=== PATIENT | female | born 1950 | race Caucasian/White ===

== ENCOUNTER → 2016-11-23 | Outpatient (CLI) | payer OTHER ==
[2016-05-24 14:43] VITALS: BP 145/90; PULSE 65
[~2016-11-23] MED LIST: ALL180 PO; ANAS1TAB19 PO; ASPCH81X PO; CALC625T PO; CHOL100010 PO; CLTP PO; DOCU-94 PO; IBUP600T44 PO; LORA-741 PO; MULT-506 PO; NIAC500T11 PO; OMEG10007 PO; TAMO20TA47 PO
[2016-11-23 14:02] VITALS: BP_SYST 132; BP_SYST 153; BP_DIAS 88; BP_DIAS 96; PULSE 92; TEMP 36.5; O2SAT 94
--- NOTE | 2016-11-23 14:58 | Radiation Oncology Follow-Up ---
Radiation Oncology Follow-Up Date of Visit Nov 23, 2016. Reason For Visit 6 month follow-up Radiation Completion Date 04/12/16 APB Diagnosis (1) Breast cancer Status: Resolved Onset Date: 02/22/2016 Histology Subtype: invasive carcinoma with lobular features Stage: l (A) Permanent Comment: Family history of breast cancer Status post abnormal right breast mammogram 11/02/2015 Status post excisional biopsy 12/23/2015 revealing invasive carcinoma with lobular features Estrogen receptor positive, progesterone receptor positive, HER-2/dannie negative Status post right sentinel lymph node biopsy with reexcision 01/27/2016 Stage pT1c pN0M0 Reexcision 02/17/2016 Oncotype DX of 11 Status post completion of radiation therapy 04/12/2016 received 3850 cGy utilizing accelerated partial breast irradiation. Last Edited By: Crissy Jones on Apr 20, 2016 09:23 History of Present Illness Ms. Guaman is a 66-year-old female with a family history of breast Cancer. The patient's mother was diagnosed with breast cancer and from metastatic breast cancer at age 64. The patient has been followed with screening mammograms. Her most recent was on 10/29/2015 this was compared to the prior mammogram from 10/11/2014. The left breast was unremarkable. The right breast revealed scattered fibroglandular densities with additional projection and spot compression views were recommended. On 11/02/2015 the patient underwent a unilateral diagnostic right breast mammogram and targeted ultrasound. This showed a spiculated density in the right breast far posterior 1 o'clock position with targeted ultrasound demonstrating an equivocal corresponding area of architectural distortion without definitive mass. A biopsy however was recommended with a category 4 mL. On 12/23/2015 the patient underwent a right rest needle localization excisional biopsy. This was performed of the posterior right breast at a depth of 2:00. This revealed an invasive carcinoma with lobular features histologic grade 2 measuring 2.0 cm. There was evidence of low-grade DCIS without necrosis identified. Carcinoma however involve the cauterized HEENT superior margins. All other resection margins were negative for carcinoma but within 0.5 mm of the lateral margin at the posterior aspect and 1 mm to the posterior margin and 1.5 mm to the anterior margin. Estrogen receptors were strongly positive and progesterone receptors were strongly positive. HER-2/dannie was negative. Accession #: [id number]. Patient subsequently underwent a reexcision and sentinel node biopsy on 2015. 2 benign lymph nodes were noted by IHC and immunohistochemistry to cytokeratin. Reexcision of the right breast cavity revealed a small amount of residual invasive and in situ carcinoma measuring 0.3 cm in the tissue surrounding the reactive biopsy site. Invasive tumor was present at the cauterized anterior superior margin focally measuring 1 mm and in situ carcinoma was very close (less than 0.02 cm) to the anterior superior margin focally estimated at 1 mm. Accession #: [id number]. Ultimately the patient was taken for a reexcision of the anterior/superior margin on 02/17/2016. No residual disease was appreciated. Accession #: [id number]/02/2003. An Oncotype DX recurrence test was performed with a recurrence score result of 11. This places the patient in a low risk category. Based on this information and following review with Dr. Fei White the patient was not felt to require systemic chemotherapy. They did recommend adjuvant antiestrogen therapy with Arimidex that would start following the completion of her radiation. It is for discussion of the role of radiation that the patient is being seen in referral. She underwent CT simulation and was found to be a candidate for accelerated partial breast irradiation. Interim History She's been doing well over this past year. She had no discomfort of the breasts until after having mammogram. She then had some discomfort in the outer portion of the right breast. She's noted no masses or changes of the axilla. She is up-to-date on mammography. She is on tamoxifen and denies side effects. She had fallen and had contusions of her back and knees. It took a few months to recover from her injuries. She is doing well now and back to swimming regularly. When the joint discomfort was happening a decision was made to stop Arimidex and go on tamoxifen. Allergies Coded Allergies: No Known Allergies (Verified Allergy, Mild, 09/30/09) Home Medications Scheduled Aspirin (Aspirin Chewable), 81 MG PO DAILY Calcium Polycarbophil (Fibercon), 2 CAP PO DAILY Calcium/Vitamin D (Caltrate 600 Plus *), 1 TAB PO DAILY Cholecalciferol (Vitamin D), 1,000 INTER.UNIT PO DAILY Docusate Sodium (Colace), 1 CAP PO DAILY Fish Oil ([place]-3), 1,000 MG PO DAILY Ibuprofen (Motrin), 600 MG PO Q6HR PRN Multivitamin (Multivitamin), 1 TAB PO DAILY Niacin (Niacin), 500 MG PO DAILY Tamoxifen (Nolvadex), 20 MG PO DAILY Scheduled PRN Fexofenadine Hcl (Laurie *), 180 MG PO DAILY PRN for Nasal Congestion Review of Systems Gastrointestinal: Symptoms: WNL Oral: Symptoms: No Problems Respiratory: Symptoms: WNL Urinary: Symptoms: WNL Skin: Symptoms: No Problems Other Skin Symptoms: Skin currently peeling, tenderness is better, using silvadene Breast: Right Upper Arm Measurement: 37.0 Right Mid Arm Measurement: 32.5 Right Wrist Measurement: 18.5 Left Upper Arm Measurement: 37.5 Left Mid Arm Measurement: 31.3 Left Wrist Measurement: 18.8 Arm Dominence: Right Physical Exam Vital Signs Date Time Temp Pulse Resp B/P Pulse Ox O2 Delivery O2 Flow Rate FiO2 11/23/16 14:02 36.5 92 16 153/96 94 132/88 Pain: Patient Pain Scale: 0 - 10 Initial Pain Intensity: 0.0 Fatigue: None General Appearance: no apparent distress Eyes: normal inspection, EOMI ENT: normal ENT inspection, hearing grossly normal Neck: no adenopathy, thyroid normal Respiratory/Chest: lungs clear, no respiratory distress, no accessory muscle use Breast: Breast examination reveals well-healed incisions of the right breast. There is mild hyperpigmentation mentation in the area of treatment in the upper outer quadrant. She also has telangiectasia over the area of the incision. There are no masses or lymphadenopathy. She has very mild tenderness in the area of the tail of the breast. There are no skin retractions or nipple changes. Using the [place] score cosmesis she has a fair outcome. The left breast showed no masses or tenderness and no axillary adenopathy. Cardiovascular: regular rate, rhythm, no gallop, no murmur Abdomen: non tender, soft Neurologic/Psychiatric: no motor/sensory deficits, alert, normal mood/affect Skin: warm/dry Lymphatic: no adenopathy Additional Studies She had a mammogram 10/06/2016. On the right findings are probably benign. A short interval follow-up is recommended in 6 months. On the left negative, no evidence of malignancy. Normal interval follow-up is recommended in 12 months. This was given a BI-RADS Category 3. Assessment & Plan Plan: She is scheduled for her next mammogram in April. This will be a right unilateral mammogram. She continues on tamoxifen. We discussed the telangiectasia and hyperpigmentation in the area of treatment. The hyperpigmentation should steadily improved. Unfortunately the telangiectasia will be a likely permanent later side effect. Continue regular follow-up with Dr. White in medical oncology and her primary care physician. We asked her to return to our office in 1 year. Total Time In Follow-Up I spent 20 minutes speaking to the patient and performing his examination. I spent 15 minutes reviewing information in completing this note. Copy To Patricia Terrazas MD; Nel Mora D.O.; Fei White M.D. Problem Qualifiers (1) Breast cancer: Breast location: upper inner quadrant of breast Patient sex: female Laterality: right Qualified Codes: C50.211 - Malignant neoplasm of upper- inner quadrant of right female breast
== END | disposition home or self-care (01) ==
LOC: C.ONC 13:50
PROVIDERS: ATTEND Radiology Radiation Oncology
DX: Z08 Encounter for follow-up examination after completed treatment for malignant neoplasm (principal); Z92.3 Personal history of irradiation; Z85.3 Personal history of malignant neoplasm of breast

== ENCOUNTER → 2017-11-22 | Outpatient (CLI) | payer OTHER ==
[~2017-11-22] MED LIST changes: -ANAS1TAB19 PO; -LORA-741 PO; -TAMO20TA47 PO; +TAMO20TA9 PO
[2017-11-22 13:24] VITALS: BP 131/76; PULSE 80; TEMP 36.5; O2SAT 93
--- NOTE | 2017-11-22 14:15 | Radiation Oncology Follow-Up ---
Radiation Oncology Follow-Up Date of Visit Nov 22, 2017. Reason For Visit annual follow up Radiation Completion Date 04/12/16 - APBI Diagnosis (1) Breast cancer Status: Resolved Onset Date: 02/22/2016 Histology Subtype: Lobular Stage: l (A) Permanent Comment: Family history of breast cancer Status post abnormal right breast mammogram 11/02/2015 Status post excisional biopsy 12/23/2015 revealing invasive carcinoma with lobular features Estrogen receptor positive, progesterone receptor positive, HER-2/dannie negative Status post right sentinel lymph node biopsy with reexcision 01/27/2016 Stage pT1c pN0M0 Reexcision 02/17/2016 Oncotype DX of 11 Status post completion of radiation therapy 04/12/2016 received 3850 cGy utilizing accelerated partial breast irradiation. Last Edited By: Crissy Jones on Apr 20, 2016 09:23 History of Present Illness Ms. Guaman has a family history of breast Cancer. The patient's mother was diagnosed with breast cancer and from metastatic breast cancer at age 64. The patient has been followed with screening mammograms. Her most recent was on 10/29/2015 this was compared to the prior mammogram from 10/11/2014. The left breast was unremarkable. The right breast revealed scattered fibroglandular densities with additional projection and spot compression views were recommended. On 11/02/2015 the patient underwent a unilateral diagnostic right breast mammogram and targeted ultrasound. This showed a spiculated density in the right breast far posterior 1 o'clock position with targeted ultrasound demonstrating an equivocal corresponding area of architectural distortion without definitive mass. A biopsy however was recommended with a category 4 mL. On 12/23/2015 the patient underwent a right rest needle localization excisional biopsy. This was performed of the posterior right breast at a depth of 2:00. This revealed an invasive carcinoma with lobular features histologic grade 2 measuring 2.0 cm. There was evidence of low-grade DCIS without necrosis identified. Carcinoma however involve the cauterized HEENT superior margins. All other resection margins were negative for carcinoma but within 0.5 mm of the lateral margin at the posterior aspect and 1 mm to the posterior margin and 1.5 mm to the anterior margin. Estrogen receptors were strongly positive and progesterone receptors were strongly positive. HER-2/dannie was negative. Accession #: [id number]. Patient subsequently underwent a reexcision and sentinel node biopsy on 2015. 2 benign lymph nodes were noted by IHC and immunohistochemistry to cytokeratin. Reexcision of the right breast cavity revealed a small amount of residual invasive and in situ carcinoma measuring 0.3 cm in the tissue surrounding the reactive biopsy site. Invasive tumor was present at the cauterized anterior superior margin focally measuring 1 mm and in situ carcinoma was very close (less than 0.02 cm) to the anterior superior margin focally estimated at 1 mm. Accession #: [id number]. Ultimately the patient was taken for a reexcision of the anterior/superior margin on 02/17/2016. No residual disease was appreciated. Accession #: [id number] 12/02/2003. An Oncotype DX recurrence test was performed with a recurrence score result of 11. This places the patient in a low risk category. Based on this information and following review with Dr. Fei White the patient was not felt to require systemic chemotherapy. They did recommend adjuvant antiestrogen therapy with Arimidex that would start following the completion of her radiation. It is for discussion of the role of radiation that the patient is being seen in referral. She underwent CT simulation and was found to be a candidate for accelerated partial breast irradiation. Interim History She has been doing well over this past year. She denies any changes to her breast. She has noted no masses or tenderness and no change of the axilla. She has had no swelling of her arm. She had side effects with tamoxifen. She had severe muscle pain and arthralgias. She discussed it with Dr. White at medical oncology and made the decision to stop the medication. She does feel improved off the medication. She does continue to have some pain in her knees. This can be around a level 5. She does have a previous injury approximately a year and half ago. She had tripped and fallen onto her knees. She was seen and evaluated. There was also a back injury. She was referred and underwent physical therapy. Allergies Coded Allergies: No Known Allergies (Verified Allergy, Mild, 09/30/09) Home Medications Scheduled Aspirin (Aspirin Chewable), 81 MG PO DAILY Calcium Polycarbophil (Fibercon), 1 CAP PO DAILY Calcium/Vitamin D (Caltrate 600 Plus *), 1 TAB PO DAILY Cholecalciferol (Vitamin D), 1,000 INTER.UNIT PO DAILY Docusate Sodium (Colace), 1 CAP PO DAILY Fish Oil ([place]-3), 1,000 MG PO DAILY Multivitamin (Multivitamin), 1 TAB PO DAILY Niacin (Niacin), 500 MG PO DAILY Scheduled PRN Fexofenadine Hcl (Laurie *), 180 MG PO DAILY PRN for Nasal Congestion Ibuprofen (Motrin), 600 MG PO Q6HR PRN PRN for Pain Review of Systems Gastrointestinal: Symptoms: WNL Oral: Symptoms: No Problems Respiratory: Symptoms: WNL Urinary: Symptoms: WNL Skin: Symptoms: No Problems Breast: Right Upper Arm Measurement: 36.4 Right Mid Arm Measurement: 32.4 Right Wrist Measurement: 18.8 Left Upper Arm Measurement: 36.5 Left Mid Arm Measurement: 30.8 Left Wrist Measurement: 18.4 Arm Dominence: Right Physical Exam Vital Signs Date Time Temp Pulse Resp B/P (MAP) Pulse Ox O2 Delivery O2 Flow Rate FiO2 11/22/17 13:24 36.5 80 16 131/76 93 Fatigue: None General Appearance: no apparent distress Eyes: normal inspection, EOMI ENT: normal ENT inspection, hearing grossly normal Neck: no adenopathy, thyroid normal Respiratory/Chest: lungs clear, no respiratory distress, no accessory muscle use Breast: Breast examination reveals well-healed incisions of the right breast. There are no masses or tenderness and no axillary adenopathy. There are fibrous changes in the upper quadrants of the breast. She has overlying telangiectasia in the area of the incision. There are no skin retractions or nipple changes. Using the [place] score of cosmesis she has a fair outcome. Left breast showed no masses or tenderness and no axillary adenopathy. Cardiovascular: regular rate, rhythm, no gallop, no murmur Abdomen: non tender, soft Extremities: no pedal edema Neurologic/Psychiatric: no motor/sensory deficits, alert, normal mood/affect Skin: warm/dry Pain Management Patient Reports Pain: Yes Side: Bilateral Pain Location: Knee Initial Pain Intensity: 5.0 Pain Management Plan This is an ongoing issue which she is going to continue to review with her primary care physician. She currently does not take any pain medication. No pain management was required by our office. Laboratory Laboratory Results: not applicable Pathology Pathology Results: not applicable Imaging Imaging Studies: were reviewed, and pertinent findings noted below Imaging Comments Results MAMMOGRAM, DIAGNOSTIC, BILAT [G0204.2] (Spec. #[id number]) (Order [id number]) Date/Time of Imaging Study Study Completed: 10/19/2017 11:21 AM [facility] PACS Image Narrative Comparison is made to images from 10/06/2016 (bilateral) and images from 2015 (right) and images from 10/29/2015 (bilateral) and images from 10/11/2014 (bilateral) and images from (bilateral) and images from 09/13/2012 (bilateral) and images from 03/01/2012 (left) and images from 08/29/2011 (bilateral) and images from 02/25/2011 (left). Right Breast Findings: There are scattered fibroglandular densities (25% - 50% fibroglandular). Posttherapeutic changes of resection of invasive carcinoma December 2015. No new significant masses, calcifications or other abnormalities are seen. Left Breast Findings: There are scattered fibroglandular densities (25% - 50% fibroglandular). No significant masses, calcifications or other abnormalities are seen. Authenticated By Authenticating Date Authenticating Time Reading Providers(s) BRYCE COREY MD 10-19-2017 14:42 BRYCE COREY MD IMPRESSION: RIGHT BREAST: Findings are probably benign. A short interval follow-up is recommended in 6 months to complete 24 months of post procedure evaluation. LEFT BREAST: Negative, no evidence of malignancy. Normal interval follow-up is recommended in 12 months. The above findings and recommendations were discussed with and understood by the patient. Note: Approximately 10% of breast cancers are not detected on mammography. A negative mammographic report should not delay biopsy if a clinically suggestive mass is present. This mammogram has been analyzed with the computer aided detection system. Tomosynthesis was done. Assessment & Plan Plan: Continue with scheduled mammography. Continue regular follow-up with her breast surgeon and primary care physician. She has been discharged from medical oncology. She is no longer on the tamoxifen. She will see her primary care physician if she continues to have issues with discomfort in her knees. We discussed follow-up examinations. She should be having breast exams every 6 months. She stated that most of her visits have been within the past 2 months. She is therefore going to be scheduled to come back to our office in 6 months. We can then alternate visits with her breast surgeon. She may call our office if she has any questions or concerns in the interim. Total Time In Follow-Up I spent 20 minutes speaking to the patient and performing examination. I spent 15 minutes reviewing information and completing this note. Copy To Patricia Terrazas MD; Nel Mora D.O. Problem Qualifiers (1) Breast cancer: Breast location: upper inner quadrant of breast Estrogen receptor status: positive Patient sex: female Laterality: right Qualified Codes: C50.211 - Malignant neoplasm of upper-inner quadrant of right female breast; Z17.0 - Estrogen receptor positive status [ER+]
== END | disposition home or self-care (01) ==
LOC: C.ONC 13:18
PROVIDERS: ATTEND Physician Assistant Medical
DX: Z08 Encounter for follow-up examination after completed treatment for malignant neoplasm (principal); Z92.3 Personal history of irradiation; Z85.3 Personal history of malignant neoplasm of breast

== ENCOUNTER 2018-02-22 17:19 | Emergency (ER) | payer OTHER ==
[~2018-02-22] VITALS: Ht 177.8 cm; Wt 115.7 kg
[~2018-02-22 17:19] MED LIST changes: -TAMO20TA9 PO
[2018-02-22 17:25] VITALS: TEMP 36.6; Ht 177.8 cm; Wt 115.7 kg
--- NOTE | 2018-02-22 17:43 | EMERGENCY ROOM VISIT NOTE ---
History Report prepared by Luiza: Reji Jones Under the Supervision of: Dr. Hernan Ham M.D. First contact with patient: 17:28 Chief Complaint: KIDNEY STONE Stated Complaint: KIDNEY STONES, LOWER LEFT BACK PAIN History of Present Illness The patient is a 67 year old female who presents to the Emergency Room with complaints of waxing and waning left lower back pain starting this morning which is worse with movement and leaning over. The patient notes that she has a "strange sensation" in her pelvis after she urinates for the past few days. She states that she talked to her PCP and thought that she had a UTI so she was prescribed Bactrim and is taking over the counter Azo medication. She states that she has a history of kidney stones, and she states that the back pain feels somewhat similar. The patient denies any fever, chills, nausea, vomiting, vaginal bleeding, vaginal discharge, leg pain, leg swelling, and headache. The patient has a history of breast cancer and is in remission. The patient has no history of diabetes, and she is not on any blood thinners. Source of History: patient, spouse/significant other Onset: this morning Position: back (left lower) Timing: waxes/wanes Modifying Factors (Worsening): movement, other (leaning over) Associated Symptoms: No fevers, No chills, No headache, No nausea, No vomiting Review of Systems See HPI for pertinent positives & negatives. A total of 10 systems reviewed and were otherwise negative. Past Medical & Surgical Medical Problems: (1) Breast cancer Old medical records were reviewed. Nurse's notes were reviewed and I agree with. Social History Smoking Status: Never Smoker Alcohol Use: none Marital Status: Current/Historical Medications Scheduled Aspirin (Aspirin Chewable), 81 MG PO DAILY Calcium Carbonate-Vitamin D W/ (Caltrate 600 Plus), 1 TAB PO DAILY Calcium Polycarbophil (Fibercon), 1 CAP PO DAILY Cholecalciferol (Vitamin D), 1,000 UNITS PO DAILY Docusate Sodium (Colace), 1 CAP PO DAILY Fish Oil ([place]-3), 1,000 MG PO DAILY Multivitamin (Multivitamin), 1 TAB PO DAILY Niacin (Niacin), 500 MG PO DAILY Sulfa/Trimethoprim (Bactrim Ds 800MG/160MG), 1 TAB PO BID Scheduled PRN Fexofenadine-Pseudoephedrine (Laurie-D 24 Hour Allergy), 1 TAB PO DAILY PRN for Seasonal Allergies Ibuprofen (Motrin), 600 MG PO Q6HR PRN PRN for Pain Allergies Coded Allergies: No Known Allergies (Verified , 02/22/18) Physical Exam Vital Signs Date Time Temp Pulse Resp B/P (MAP) Pulse Ox O2 Delivery O2 Flow Rate FiO2 02/22/18 19:20 82 17 145/83 97 Room Air 02/22/18 17:25 36.6 88 18 174/102 95 Room Air Physical Exam General: Non-ill appearing older female in no acute distress. HEENT: Normal cephalic atraumatic. Pupils are equal round and reactive to light. Extraocular movements are intact. Oropharynx is pink with moist mucous membranes. No swelling of the mouth lips or tongue. Neck: Supple with a midline trachea. No meningeal signs or stiffness, no JVD or bruits. No Stridor. Chest: Clear to auscultation bilaterally. No wheezes or rhonchi. No increased work of breathing. Heart: regular rate and rhythm. Abdomen: Soft nontender, nondistended without rebound guarding or rigidity. Extremities: No cyanosis clubbing or edema. No calf tenderness or assymetry Spine/Back. Left flank is mildly tender to palpation. Non tender to palpation. Skin: Good turgor without rashes. Neurologic exam: Cranial nerves two through 12 are intact. Motor and sensation are intact and symmetrical throughout. Medical Decision & Procedures ER Provider Diagnostic Interpretation: Radiology results as stated below per my review and radiologist interpretation: ABDOMEN AND PELVIS CT WITHOUT CONTRAST CT DOSE: 1703.63 mGy.cm HISTORY: left flank pain TECHNIQUE: Multiaxial CT images of the abdomen and pelvis were performed without the use of intravenous and oral contrast according to the standard department stone protocol. A dose lowering technique was utilized adhering to the principles of ALARA. COMPARISON STUDY: Abdomen and pelvis CT 06/20/2011. FINDINGS: The bladder is decompressed. However, there is moderate bladder wall thickening and surrounding fat stranding. Multiple bilateral renal calculi. There are also 2 stones seen within the left renal pelvis with the largest measuring 7 mm. Mild left hydronephrosis. However, there are are no obstructing ureteral stones. There is mild left perinephric edema and mild urothelial thickening within the left renal collecting system and left ureter. There are few bilateral renal hypodense lesions. Dominant lesion within the left kidney measures 2 cm. There is also exophytic hypodense lesion within the lower pole the right kidney measuring 1.6 cm. These are incompletely characterize on this noncontrast study but favor cysts. These are not significantly changed. The unenhanced liver, gallbladder, pancreas, spleen, and adrenal glands are unremarkable. Moderate hiatus hernia. Small fat-containing umbilical hernia and a small fat-containing infraumbilical hernia. Hysterectomy. Suboptimal evaluation for pathology due to the lack of intravenous and oral contrast. However, there is no definite bowel wall thickening or obstruction. Extensive colonic diverticulosis. Normal appendix. No retroperitoneal lymphadenopathy. No suspicious lytic or blastic osseous lesions. The lung bases are clear. IMPRESSION: 1. Mild left hydronephrosis. There is also mild left perinephric fat stranding and urothelial thickening of the left renal pelvis and left ureter. This favors a left-sided pyelonephritis. However, a recently passed stone could also have a similar appearance. 2. Bilateral nephrolithiasis. No ureteral calculi identified. 3. There is also moderate bladder wall thickening with adjacent fat stranding consistent with a cystitis. Recommend correlation with urinalysis. 4. No bowel wall thickening or obstruction. 5. Moderate hiatus hernia. 6. Additional findings as described above. Electronically signed by: Everardo Bejarano M.D. 02/22/2018 6:14 PM Dictated Date/Time: 02/22/2018 6:06 PM Laboratory Results 02/22/18 17:50 Red Blood Count 4.04, Mean Corpuscular Volume 94.3, Mean Corpuscular Hemoglobin 31.4, Mean Corpuscular Hemoglobin Concent 33.3, Mean Platelet Volume 9.6, Neutrophils (%) (Auto) 69.3, Lymphocytes (%) (Auto) 20.4, Monocytes (%) (Auto) 8.3, Eosinophils (%) (Auto) 1.6, Basophils (%) (Auto) 0.2, Neutrophils # (Auto) 6.59, Lymphocytes # (Auto) 1.94, Monocytes # (Auto) 0.79, Eosinophils # (Auto) 0.15, Basophils # (Auto) 0.02 02/22/18 17:50 Test 02/22/18 17:45 02/22/18 17:50 Urine Color ORANGE Urine Appearance CLOUDY (CLEAR) Urine pH (4.5-7.5) Urine Specific [place] 1.006 (1.000-1.030) Urine Protein NEG (NEG) Urine Glucose (UA) (NEG) Urine Ketones (NEG) Urine Occult Blood (NEG) Urine Nitrite (NEG) Urine Bilirubin (NEG) Urine Urobilinogen (NEG) Urine Leukocyte Esterase (NEG) Urine RBC 5-10 /hpf (0-4) Urine WBC >30 /hpf (0-5) Urine Epithelial Cells 0-5 /lpf (0-5) Urine Bacteria NEG (NEG) Urine Hyaline Casts 0 /lpf (0-5) White Blood Count 9.51 K/uL (4.8-10.8) Red Blood Count 4.04 M/uL (4.2-5.4) Hemoglobin 12.7 g/dL (12.0-16.0) Hematocrit 38.1 % (37-47) Mean Corpuscular Volume 94.3 fL (80-100) Mean Corpuscular Hemoglobin 31.4 pg (25-34) Mean Corpuscular Hemoglobin Concent 33.3 g/dl (32-36) Platelet Count 209 K/uL (130-400) Mean Platelet Volume 9.6 fL (7.4-10.4) Neutrophils (%) (Auto) 69.3 % Lymphocytes (%) (Auto) 20.4 % Monocytes (%) (Auto) 8.3 % Eosinophils (%) (Auto) 1.6 % Basophils (%) (Auto) 0.2 % Neutrophils # (Auto) 6.59 K/uL (1.4-6.5) Lymphocytes # (Auto) 1.94 K/uL (1.2-3.4) Monocytes # (Auto) 0.79 K/uL (0.11-0.59) Eosinophils # (Auto) 0.15 K/uL (0-0.5) Basophils # (Auto) 0.02 K/uL (0-0.2) RDW Standard Deviation 48.2 fL (36.4-46.3) RDW Coefficient of Variation 14.0 % (11.5-14.5) Immature Granulocyte % (Auto) 0.2 % Immature Granulocyte # (Auto) 0.02 K/uL (0.00-0.02) Anion Gap 7.0 mmol/L (3-11) Est Creatinine Clear Calc Drug Dose 84.8 ml/min Estimated GFR () 77.2 Estimated GFR (Non- 66.6 BUN/Creatinine Ratio 16.5 (10-20) Calcium Level 9.3 mg/dl (8.5-10.1) Total Bilirubin 0.3 mg/dl (0.2-1) Direct Bilirubin < 0.1 mg/dl (0-0.2) Aspartate Amino Transf (AST/SGOT) 18 U/L (15-37) Alanine Aminotransferase (ALT/SGPT) 21 U/L (12-78) Alkaline Phosphatase 71 U/L (45-117) Total Protein 8.7 gm/dl (6.4-8.2) Albumin 4.0 gm/dl (3.4-5.0) Lipase 102 U/L (73-393) Laboratory studies as stated above per my review. Medications Administered Medications (Trade) Dose Ordered Sig/Coral Route Start Time Stop Time Status Last Admin Dose Admin Ceftriaxone Sodium (Rocephin Inj) 1 gm NOW STAT IV 02/22/18 18:19 02/22/18 18:21 DC 02/22/18 18:32 1 GM Ketorolac Tromethamine (Toradol Inj) 30 mg NOW STAT IV 02/22/18 18:25 02/22/18 18:26 DC 02/22/18 18:33 30 MG ED Course 172: Past medical records reviewed. The patient was evaluated in room B6, and a complete history and physical examination were performed. 1805: I reevaluated the patient, and she was doing well. 1818: Rocephin 1gm IV 1822: I reassessed the patient, and she was resting comfortably. 1824: Toradol 30mg IV 1925: Upon reevaluation, the patient is feeling better. I discussed the results and treatment plan with her. She verbalized agreement of the treatment plan. The patient was discharged home. Medical Decision Differentials include, but are not limited to; kidney stone, UTI, kidney infection, musculoskeletal pain, electrolyte or metabolic abnormality. This patient comes in complaining of urinary symptoms and now they are hurting more towards her left flank she started Bactrim today. She appears well on exam and nontoxic. She has no significant flank tenderness and clinically I do not think she has pyelonephritis. She does have history of kidney stones and feels that this could feel similar though she appears in no significant distress. She does have history of breast cancer however she says this is in remission. IV access was established and multiple blood testing was obtained as well as urinalysis and culture. I did do a CAT scan to rule out any obstructive uropathy or kidney stone. She was reassessed frequently. CAT scan shows no evidence to suggest an obstructing kidney stone there is some mild hydronephrosis on the left which could be from infection or recently passed stone. She tells me she did pass a large stone recently around Mother's Day. Her urinalysis has greater than 30 and will continue Bactrim. She was also given white cells but no bacteria she has no white count or fever to suggest infection. She was given Rocephin 1 g IV to cover the possibility of infection and was also given Toradol 30 mg IV. She is feeling better would like to go home. I think this is reasonable with close follow-up. I will increase her Bactrim to 10 days. She just started this today. She should return if: increasing pain, worsening of symptoms, fever or chills, any new problems or concerns. She was happy the plan and discharged to home. She should follow-up with her doctor or urologist either tomorrow or Monday or return to the ER at any point if symptoms worsen. Medication Reconcilliation Current Medication List: was personally reviewed by me Blood Pressure Screening Patient's blood pressure: Elevated blood pressure Blood pressure disposition: Referred to PCP Impression Primary Impression: Pyelonephritis Additional Impression: UTI (urinary tract infection) Scribe Attestation The scribe's documentation has been prepared under my direction and personally reviewed by me in its entirety. I confirm that the note above accurately reflects all work, treatment, procedures, and medical decision making performed by me. Departure Information Dispostion Home / Self-Care Prescriptions Sulfa/Trimethoprim (Bactrim Ds 800MG/160MG) Tab 1 TAB PO BID, #14 TAB Prov: Hernan Ham M.D. 02/22/18 Referrals Nel Mora D.O. (PCP) Forms HOME CARE DOCUMENTATION FORM, IMPORTANT VISIT INFORMATION Patient Instructions [facility] Additional Instructions Rest. Drink plenty of fluids. May use [id number] ibuprofen 400 mg every 6 hours as needed for pain May also use acetaminophen/Tylenol a maximum of 2 regular strength pills every 6 hours Do not take with any other medications that contain acetaminophen/Tylenol Continue your Bactrim and take it for a total of 10 days Return to the ER if: Increasing pain, fever or chills, vomiting, worsening of symptoms, any new problems or concerns. Problem Qualifiers
[2018-02-22 18:11] LABS: BASO % 0.2 %; BASO ABS # 0.02 K/uL (0-0.2); EOS % 1.6 %; EOS ABS # 0.15 K/uL (0-0.5); HEMATOCRIT 38.1 % (37-47); HEMOGLOBIN 12.7 g/dL (12.0-16.0); IG# 0.02 K/uL (0.00-0.02); LYMPH % 20.4 %; LYMPH ABS # 1.94 K/uL (1.2-3.4); MEAN CELL VOLUME 94.3 fL (80-100); MEAN CORPUSCULAR HEMOGLOBIN 31.4 pg (25-34); MEAN CORPUSCULAR HGB CONC 33.3 g/dl (32-36); MEAN PLATELET VOLUME 9.6 fL (7.4-10.4); MONO % 8.3 %; MONO ABS # 0.79 K/uL (0.11-0.59); NEUT % 69.3 %; NEUT ABS # 6.59 K/uL (1.4-6.5); PLATELET COUNT 209 K/uL (130-400); RED CELL DISTRIBUTION WIDTH SD 48.2 fL (36.4-46.3); WHITE BLOOD COUNT 9.51 K/uL (4.8-10.8)
[2018-02-22] MEDS ORDERED: CHOL100010 PO (18:11)
[2018-02-22] MEDS ORDERED: FEXO1TAB58 PO (18:11)
[2018-02-22] MEDS ORDERED: CALCTAB7 PO (18:11)
--- NOTE | 2018-02-22 18:15 | DIAGNOSTIC IMAGING REPORT ---
ABDOMEN AND PELVIS CT WITHOUT CONTRAST CT DOSE: 1703.63 mGy.cm HISTORY: left flank pain TECHNIQUE: Multiaxial CT images of the abdomen and pelvis were performed without the use of intravenous and oral contrast according to the standard department stone protocol. A dose lowering technique was utilized adhering to the principles of ALARA. COMPARISON STUDY: Abdomen and pelvis CT 06/20/2011. FINDINGS: The bladder is decompressed. However, there is moderate bladder wall thickening and surrounding fat stranding. Multiple bilateral renal calculi. There are also 2 stones seen within the left renal pelvis with the largest measuring 7 mm. Mild left hydronephrosis. However, there are are no obstructing ureteral stones. There is mild left perinephric edema and mild urothelial thickening within the left renal collecting system and left ureter. There are few bilateral renal hypodense lesions. Dominant lesion within the left kidney measures 2 cm. There is also exophytic hypodense lesion within the lower pole the right kidney measuring 1.6 cm. These are incompletely characterize on this noncontrast study but favor cysts. These are not significantly changed. The unenhanced liver, gallbladder, pancreas, spleen, and adrenal glands are unremarkable. Moderate hiatus hernia. Small fat-containing umbilical hernia and a small fat-containing infraumbilical hernia. Hysterectomy. Suboptimal evaluation for pathology due to the lack of intravenous and oral contrast. However, there is no definite bowel wall thickening or obstruction. Extensive colonic diverticulosis. Normal appendix. No retroperitoneal lymphadenopathy. No suspicious lytic or blastic osseous lesions. The lung bases are clear. IMPRESSION: 1. Mild left hydronephrosis. There is also mild left perinephric fat stranding and urothelial thickening of the left renal pelvis and left ureter. This favors a left-sided pyelonephritis. However, a recently passed stone could also have a similar appearance. 2. Bilateral nephrolithiasis. No ureteral calculi identified. 3. There is also moderate bladder wall thickening with adjacent fat stranding consistent with a cystitis. Recommend correlation with urinalysis. 4. No bowel wall thickening or obstruction. 5. Moderate hiatus hernia. 6. Additional findings as described above. Electronically signed by: Everardo Bejarano M.D. 02/22/2018 6:14 PM Dictated Date/Time: 02/22/2018 6:06 PM
[2018-02-22] MEDS ORDERED: CEFTRIAXONE SOD INJ 1 GM ADDVIAL IV STA (18:19)
[2018-02-22] MEDS ORDERED: KETOROLAC TROMETHAMINE 30 MG/ML VIAL IV STA (18:25)
[2018-02-22 18:37] LABS: ALKALINE PHOSPHATASE 71 U/L (45-117); ALT/SGPT 21 U/L (12-78); AST/SGOT 18 U/L (15-37); BLOOD UREA NITROGEN 15 mg/dl (7-18); CALCIUM 9.3 mg/dl (8.5-10.1); CARBON DIOXIDE 26 mmol/L (21-32); GLUCOSE 83 mg/dl (70-99); LIPASE 102 U/L (73-393); POTASSIUM 3.9 mmol/L (3.5-5.1); SODIUM 138 mmol/L (136-145); TOTAL PROTEIN 8.7 gm/dl (6.4-8.2)
[2018-02-22] MEDS ORDERED: SULF800T23 PO (18:54)
[2018-02-22 19:20] VITALS: BP 145/83; PULSE 82; O2SAT 97
== END 2018-02-22 19:41 | disposition home or self-care (01) ==
LOC: C.EDB 17:20
DX: N12 Tubulo-interstitial nephritis, not specified as acute or chronic (principal); N39.0 Urinary tract infection, site not specified; R03.0 Elevated blood-pressure reading, without diagnosis of hypertension; Z85.3 Personal history of malignant neoplasm of breast

== ENCOUNTER → 2018-05-22 | Outpatient (CLI) | payer OTHER ==
[~2018-05-22] MED LIST changes: -ALL180 PO; +CALCTAB7 PO; -CLTP PO; +FEXO1TAB58 PO; +SULF800T23 PO
[2018-05-22 13:50] VITALS: BP 146/74; PULSE 71; TEMP 36.4; O2SAT 95
--- NOTE | 2018-05-22 14:35 | Radiation Oncology Follow-Up ---
Radiation Oncology Follow-Up Date of Visit May 22, 2018. Reason For Visit Annual follow up Radiation Completion Date 04/12/16 - [facility] Diagnosis (1) Breast cancer Status: Resolved Onset Date: 02/22/2016 Stage: l (A) Permanent Comment: Family history of breast cancer Status post abnormal right breast mammogram 11/02/2015 Status post excisional biopsy 12/23/2015 revealing invasive carcinoma with lobular features Estrogen receptor positive, progesterone receptor positive, HER-2/dannie negative Status post right sentinel lymph node biopsy with reexcision 01/27/2016 Stage pT1c [id number] Reexcision 02/17/2016 Oncotype DX of 11 Status post completion of radiation therapy 04/12/2016 received 3850 cGy utilizing accelerated partial breast irradiation. Last Edited By: Crissy Jones on Apr 20, 2016 09:23 History of Present Illness Ms. Guaman has a family history of breast Cancer. The patient's mother was diagnosed with breast cancer and from metastatic breast cancer at age 64. The patient has been followed with screening mammograms. Her most recent was on 10/29/2015 this was compared to the prior mammogram from 10/11/2014. The left breast was unremarkable. The right breast revealed scattered fibroglandular densities with additional projection and spot compression views were recommended. On 11/02/2015 the patient underwent a unilateral diagnostic right breast mammogram and targeted ultrasound. This showed a spiculated density in the right breast far posterior 1 o'clock position with targeted ultrasound demonstrating an equivocal corresponding area of architectural distortion without definitive mass. A biopsy however was recommended with a category 4 mL. On 12/23/2015 the patient underwent a right rest needle localization excisional biopsy. This was performed of the posterior right breast at a depth of 2:00. This revealed an invasive carcinoma with lobular features histologic grade 2 measuring 2.0 cm. There was evidence of low-grade DCIS without necrosis identified. Carcinoma however involve the cauterized HEENT superior margins. All other resection margins were negative for carcinoma but within 0.5 mm of the lateral margin at the posterior aspect and 1 mm to the posterior margin and 1.5 mm to the anterior margin. Estrogen receptors were strongly positive and progesterone receptors were strongly positive. HER-2/dannie was negative. Accession #: [id number]. Patient subsequently underwent a reexcision and sentinel node biopsy on 2015. 2 benign lymph nodes were noted by IHC and immunohistochemistry to cytokeratin. Reexcision of the right breast cavity revealed a small amount of residual invasive and in situ carcinoma measuring 0.3 cm in the tissue surrounding the reactive biopsy site. Invasive tumor was present at the cauterized anterior superior margin focally measuring 1 mm and in situ carcinoma was very close (less than 0.02 cm) to the anterior superior margin focally estimated at 1 mm. Accession #: [id number]. Ultimately the patient was taken for a reexcision of the anterior/superior margin on 02/17/2016. No residual disease was appreciated. Accession #: [id number]. An Oncotype DX recurrence test was performed with a recurrence score result of 11. This places the patient in a low risk category. Based on this information and following review with Dr. Fei White the patient was not felt to require systemic chemotherapy. They did recommend adjuvant antiestrogen therapy with Arimidex that would start following the completion of her radiation. It is for discussion of the role of radiation that the patient is being seen in referral. She underwent CT simulation and was found to be a candidate for accelerated partial breast irradiation Interim History She continues to have mild discomfort in the area of treatment. This only occurs if the area is accidentally bumped. She will also noticed some mild discomfort in the lateral aspect of the breast on the right if she does pull- ups. She swims on a regular basis at the [facility] and has been doing some pull-ups as part of the water exercises. She is noted no swelling of the breast. She is up-to-date on mammography. She had been on tamoxifen for approximately 1 year. The medication was stopped due to joint discomfort. Allergies Coded Allergies: No Known Allergies (Verified , 02/22/18) Home Medications Scheduled Aspirin (Aspirin Chewable), 81 MG PO DAILY Calcium Carbonate-Vitamin D W/ (Caltrate 600 Plus), 1 TAB PO DAILY Calcium Polycarbophil (Fibercon), 1 CAP PO DAILY Cholecalciferol (Vitamin D), 1,000 UNITS PO DAILY Docusate Sodium (Colace), 1 CAP PO DAILY Fish Oil ([place]-3), 1,000 MG PO DAILY Multivitamin (Multivitamin), 1 TAB PO DAILY Niacin (Niacin), 500 MG PO DAILY Scheduled PRN Fexofenadine-Pseudoephedrine (Laurie-D 24 Hour Allergy), 1 TAB PO DAILY PRN for Seasonal Allergies Ibuprofen (Motrin), 600 MG PO Q6HR PRN PRN for Pain Review of Systems Gastrointestinal: Symptoms: WNL Oral: Symptoms: No Problems Respiratory: Symptoms: WNL Urinary: Symptoms: WNL Skin: Symptoms: No Problems Other Skin Symptoms: Occ discomfort and swelling in right breast / chest area Breast: Right Upper Arm Measurement: 36.3 Right Mid Arm Measurement: 30.4 Right Wrist Measurement: 18.7 Left Upper Arm Measurement: 35.3 Left Mid Arm Measurement: 29.4 Left Wrist Measurement: 18.9 Arm Dominence: Right Patient Cosmetic Evaluation: Good Physical Exam Vital Signs Date Time Temp Pulse Resp B/P (MAP) Pulse Ox O2 Delivery O2 Flow Rate FiO2 05/22/18 13:50 36.4 71 16 146/74 95 Fatigue: None General Appearance: no apparent distress Eyes: normal inspection, EOMI ENT: normal ENT inspection, hearing grossly normal Neck: no adenopathy, thyroid normal Respiratory/Chest: lungs clear, no respiratory distress, no accessory muscle use Breast: Breast examination reveals telangiectasia of the upper inner portion of the right breast. There are mild fibrous changes below and above the incision line. There are no distinct masses. There is no tenderness and no axillary adenopathy. She has no skin retractions or nipple changes. Using the [place] score cosmesis she has a fair outcome do the telangiectasia. The left breast showed no masses or tenderness and no axillary adenopathy. In general she has been doing well. She did have an emergency room visit for pyelonephritis in January. She had flank pain at that time. Study showed hydronephrosis. Her pain is now resolved. Hydronephrosis was felt to be due to recent passage of stone. Cardiovascular: regular rate, rhythm, no gallop, no murmur Extremities: no pedal edema Neurologic/Psychiatric: no motor/sensory deficits, alert, normal mood/affect Skin: warm/dry Pain Management Patient Reports Pain: No Initial Pain Intensity: 0.0 Pain Management Plan She denies pain therefore requires no pain management. Laboratory Laboratory Results: not applicable Pathology Pathology Results: were reviewed, and pertinent findings noted in HPI Imaging Imaging Studies: were reviewed, and pertinent findings noted below Imaging Comments She had a mammogram October 19, 2017. This revealed on the right findings are probably benign. Short interval follow-up is recommended. The planned 24 months of postprocedure evaluation. Left breast was negative with no evidence of malignancy. Interval follow-up of 12 months. Assessment & Plan Plan: Patient is behind on follow-up mammography. The patient stated that follow-up mammography was discussed with Dr. Terrazas and it is planned that she will have a mammogram 1 year following the last evaluation. She will continue follow-up with her breast surgeon and primary care provider. She was discussed light massage to the area of fibrous tissue in the upper inner portion of the breast. We discussed the telangiectasia. She is not cosmetically concerned with this outcome. We asked her to return to our office in 1 year. She may call if she has any questions or concerns in the interim. Total Time In Follow-Up I spent 20 minutes speaking to the patient in performing examination. I spent 15 minutes reviewing information and completing this note. Copy To Patricia Terrazas MD; Nel Mora, D.O. Problem Qualifiers (1) Breast cancer: Breast location: upper inner quadrant of breast Estrogen receptor status: positive Patient sex: female Laterality: right Qualified Codes: C50.211 - Malignant neoplasm of upper-inner quadrant of right female breast; Z17.0 - Estrogen receptor positive status [ER+]
== END | disposition home or self-care (01) ==
LOC: C.ONC 13:33
PROVIDERS: ATTEND Physician Assistant Medical
DX: Z08 Encounter for follow-up examination after completed treatment for malignant neoplasm (principal); Z92.3 Personal history of irradiation; Z85.3 Personal history of malignant neoplasm of breast

== ENCOUNTER 2020-03-31 05:05 | Inpatient (IN) ==
--- NOTE | 2020-03-17 15:53 | PAT Medication Instructions ---
Medication Instructions Date of Service March 17, 2020 Home Medications Medication Instructions Recorded walker #1 ea 02/11/20 walker #1 ea 02/11/20 calcium carbonate-vitamin D3 [Caltrate 600 + D] 1 tab PO QAM calcium polycarbophil [FiberCon] 1,250 mg PO HS cholecalciferol (vitamin D3) [Vitamin D3] 1,000 unit PO QAM docusate sodium [Colace] 100 mg PO HS fexofenadine-pseudoephedrine [Laurie-D 24 Hour] 1 tab PO QAM PRN ibuprofen 600 mg PO QAM multivitamin 1 tab PO QAM niacin 500 mg PO HS rosuvastatin 5 mg tablet 5 mg PO QAM ASK your surgeon for instructions ibuprofen 600 mg PO QAM STOP taking 48 hours before surgery niacin 500 mg PO HS DO NOT take the morning of surgery calcium carbonate-vitamin D3 [Caltrate 600 + D] 1 tab PO QAM cholecalciferol (vitamin D3) [Vitamin D3] 1,000 unit PO QAM fexofenadine-pseudoephedrine [Laurie-D 24 Hour] 1 tab PO QAM PRN multivitamin 1 tab PO QAM Take morning of surgery With a small sip of water, OTHERWISE NOTHING TO EAT OR DRINK AFTER MIDNIGHT: rosuvastatin 5 mg tablet 5 mg PO QAM Take evening before surgery calcium polycarbophil [FiberCon] 1,250 mg PO HS docusate sodium [Colace] 100 mg PO HS Other Notes If you have any questions please call us at [phone] or [phone] or [phone] or [phone]
--- NOTE | 2020-03-18 14:19 | Anesthesiology Consultation ---
Date of Service March 18, 2020 Assessment & Plan (1) Encounter for pre-operative examination: Chart Review Chart Review: Acceptable Risk for Surgery (pending Covid testing) and Patient seen in Pre Admission Testing Per PAT appt 03/18/20, no travel to high risk/endemic areas. Educated on getting Covid order three days prior- pt aware and has surgeon order. Pt educated on importance of social distancing, self quarantining and wearing a mask if needs to go into public. Teaching & Discussion Pre-Anesthesia Teaching/Discussion Notes: Instructed NPO after midnight before surgery,except medications with 15 cc of water. Medication instructions provided according to the PAT guidelines. History Surgery Operation Date: 03/31/20 09:05 Proposed Procedures p Right Total Knee Arthroplasty - Hernan Mcgowan, Height/Weight Height: 5 ft 10 in Weight: 115.6 kg Allergies Allergy/AdvReac Type Severity Reaction Status Date / Time No Known Allergies Allergy Mild Verified 03/11/20 11:45 Medications Home Medications Medication Instructions Recorded Confirmed Last Taken calcium carbonate-vitamin D3 1 tab PO QAM 10/23/18 03/11/20 10/23/18 [Caltrate 600 + D] calcium polycarbophil [FiberCon] 1,250 mg PO HS 10/23/18 03/11/20 10/22/18 cholecalciferol (vitamin D3) 1,000 unit PO QAM 10/23/18 03/11/20 10/23/18 [Vitamin D3] docusate sodium [Colace] 100 mg PO HS 10/23/18 03/11/20 10/22/18 fexofenadine-pseudoephedrine 1 tab PO QAM PRN 10/23/18 03/11/20 Unknown [Laurie-D 24 Hour] ibuprofen 600 mg PO QAM 10/23/18 03/11/20 10/23/18 multivitamin 1 tab PO QAM 10/23/18 03/11/20 10/23/18 niacin 500 mg PO HS 10/23/18 03/11/20 10/22/18 rosuvastatin 5 mg tablet 5 mg PO QAM 05/30/19 03/11/20 Unknown walker #1 ea 02/11/20 Unknown walker #1 ea 02/11/20 Unknown Past Medical History Medical History (Updated 03/18/20 @ 14:40 by Mabel Cason PA-C) Bilateral primary osteoarthritis of knee Breast cancer 12/23/15 Excisional biopsy of right breast- s/p XRT Breast cancer, left 10/30/2019- s/p XRT Endometrial cancer YRS AGO- FOUND INCIDENTALLY AFTER HYSTERECTOMY Fibromyalgia STABLE/CONTROLLED GERD (gastroesophageal reflux disease) GOOD CONTROL - NO MEDICATION NEEDED Hyperlipidemia Kidney stone NO CURRENT ISSUES Exercise / Class Metabolic Activity II 4-5 Yardwork/Stairs/Walk up hill (ONE FLIGHT OF STAIRS - NO CHEST PAIN OR SOB) Past Surgical History Surgical History (Updated 03/18/20 @ 14:41 by Mabel Cason PA-C) H/O dilation and curettage H/O rectocele repair History of colonoscopy History of hysteroscopy History of lithotripsy History of partial mastectomy of left breast Left partial mastectomy with SLN biopsy on 11/20/2019. NO LIMB RESTRICTIONS. History of surgery Reexcision of excisional biopsy of right breast with SLN biopsy on 01/27/16 Reexcision of reexcision of right breast on 02/17/16 Nausea and vomiting after administration of anesthetic agent SCOPALAMINE PATCH WORKED WITH LAST SURGERY S/P SEBLE-BSO S/P tonsillectomy and adenoidectomy Status post excisional biopsy Right breast on 12/23/15Re Past Anesthesia History No Hx of Anesthesia Complications (WITH EXCEPTION WITH PONV) and No Family Hx of Anesthesia Complications History of PONV History of PONV and Hx of Motion Sickness Social History Smoking Status: Never smoker Do You Dip or Chew Tobacco: No Hx Alcohol Use: Yes Alcohol type: beer and wine alcohol intake frequency: a few times a month Hx Substance Use: No Review of Systems Occ snoring- no history of sleep study Patient denies chest pain, shortness of breath, dyspnea on exertion, cough, wheezing, palpitations. No hx of seizures, stroke, Mi. No hx of blood clots or blood transfusions Physical Exam Vital Signs VITALS BP 152/87 P 73 TEMP 97.9 SP02 94% RESP 16 Constitutional no acute distress ENMT Mouth: no TMJ clicking Thyromental Distance: > or= 3.5 Finger Breadths (3.5) Mallampati Class: II Missing molars [place] to top front tooth Neck + thick neck (mild ) and + limited neck extension (minimal ) Respiratory normal respiratory effort; no respiratory distress Auscultation: lungs clear to auscultation bilaterally; no wheezes Cardiovascular Rate/Rhythm: regular rate and regular rhythm Heart Sounds: no murmur Vessels: no carotid bruit Musculoskeletal Spine: no pain with cervical ROM Neurologic moves all extremities Psychiatric Orientation: alert Testing Laboratory Results 03/18/20 14:31 03/18/20 14:31 PT 11.3 Seconds (9.0-12.0) 03/18/20 14:31 INR 1.1 (0.9-1.1) 03/18/20 14:31 APTT 28.2 Seconds (21.0-31.0) 03/18/20 14:31 Blood Type O Positive 03/18/20 14:31 Antibody Screen NEGATIVE 03/18/20 14:31 Electrocardiogram Date: 11/07/19 Findings: + NSR @ (73) When compared to EKG from Nov 24, 2015 - questionable change in axis, nonspecific T wave abnormality now evident in inferior leads Chest X-Ray Date: 03/18/20 Findings: + NAD and + cardiomegaly (mild)
--- NOTE | 2020-03-18 14:57 | XRay Report ---
XR chest Pre-admission PA/Lat CLINICAL HISTORY: Preoperative evaluation. COMPARISON STUDY: Chest radiograph August 30, 2008. FINDINGS: Lung volumes are normal. Lungs are clear. There is no pneumothorax or pleural effusion. Mil d cardiomegaly is noted. Mediastinal contours are normal. There is no evidence for pulmonary edema. A sclerotic focus within the left first rib is unchanged from earlier chest radiograph and treatment p jaswinder CT of December 12, 2019. This is benign. There is a moderate sized hiatal hernia. IMPRESSION: 1. No acute findings. 2. Mild cardiomegaly. ACT 112: Negative or not required by law. Electronically signed by: Avi Durand M.D. 03/18/2020 2:55 PM
[2020-03-18 15:01] LABS: Basophils # (auto) 0.03 K/uL (0-0.2); Basophils % (auto) 0.6 %; Eosinophils # (auto) 0.12 K/uL (0-0.5); Eosinophils % (auto) 2.2 %; Hematocrit (blood only) 37.8 % (37-47); Hemoglobin 12.3 g/dL (12.0-16.0); Immature Granulocytes # (auto) 0.02 K/uL (0.00-0.02); Immature Granulocytes % (auto) 0.4 %; Lymphocytes # (auto) 1.51 K/uL (1.2-3.4); Lymphocytes % (auto) 28.1 %; Mean Corpuscular Hemoglobin 31.4 pg (25-34); Mean Corpuscular Hgb Conc 32.5 g/dL (32-36); Mean Corpuscular Volume 96.4 fL (80-100); Mean Platelet Volume 9.6 fL (7.4-10.4); Monocytes # (auto) 0.47 K/uL (0.11-0.59); Monocytes % (auto) 8.7 %; Neutrophils # (auto) 3.23 K/uL (1.4-6.5); Platelet Count 213 K/uL (130-400); RDW Standard Deviation 49.4 fL (36.4-46.3); Red Blood Count 3.92 M/uL (4.2-5.4); White Blood Count 5.38 K/uL (4.8-10.8)
[2020-03-18 15:26] LABS: INR 1.1 (0.9-1.1); Partial Thromboplastin Time 28.2 Seconds (21.0-31.0); Prothrombin Time 11.3 Seconds (9.0-12.0)
[2020-03-18 16:22] LABS: BUN Creatinine Ratio 23.7 (10-20); Calcium 9.6 mg/dl (8.5-10.1); Creatinine Clr Calc Pharmacy 97.7 ml/min; Est GFR (African American) 93.4; Est GFR (Non-African American) 80.6; Potassium 4.6 mmol/L (3.5-5.1)
--- NOTE | 2020-03-30 16:32 | History & Physical Report ---
Date of Service March 30, 2020 Assessment & Plan (1) Bilateral primary osteoarthritis of knee: We will proceed with a right total knee arthroplasty. Postoperatively she will be started on aspirin for DVT prophylaxis and kept overnight in the hospital for postop medical management. Sleep plans to use home health upon discharge. And is a low risk for joint placement surgery without any major comorbidities. Present on Admission?: Yes History of Present Illness Chief Complaint: Primary osteoarthritis of the right knee Primary Care Provider: Nel Mora DO Norma is a pleasant 69-year-old female who is been dealing with chronic increasing right knee pain. X-rays and clinical examination are diagnostic for primary osteoarthritis of the right knee. After failing years of conservative treatment including multiple injections, she has elected to proceed with a right total knee arthroplasty. Allergies Allergy/AdvReac Type Severity Reaction Status Date / Time No Known Allergies Allergy Mild Verified 03/11/20 11:45 Home Medications Home Medications Medication Instructions Recorded Confirmed Type calcium carbonate-vitamin D3 1 tab PO QAM 10/23/18 03/11/20 History [Caltrate 600 + D] calcium polycarbophil [FiberCon] 1,250 mg PO HS 10/23/18 03/11/20 History cholecalciferol (vitamin D3) 1,000 unit PO QAM 10/23/18 03/11/20 History [Vitamin D3] docusate sodium [Colace] 100 mg PO HS 10/23/18 03/11/20 History fexofenadine-pseudoephedrine 1 tab PO QAM PRN 10/23/18 03/11/20 History [Laurie-D 24 Hour] ibuprofen 600 mg PO QAM 10/23/18 03/11/20 History multivitamin 1 tab PO QAM 10/23/18 03/11/20 History niacin 500 mg PO HS 10/23/18 03/11/20 History rosuvastatin 5 mg tablet 5 mg PO QAM 05/30/19 03/11/20 History walker #1 ea 02/11/20 Rx walker #1 ea 02/11/20 Rx Past Med/Surg History Medical History Bilateral primary osteoarthritis of knee Breast cancer 12/23/15 Excisional biopsy of right breast- s/p XRT Breast cancer, left 10/30/2019- s/p XRT Endometrial cancer YRS AGO- FOUND INCIDENTALLY AFTER HYSTERECTOMY Fibromyalgia STABLE/CONTROLLED GERD (gastroesophageal reflux disease) GOOD CONTROL - NO MEDICATION NEEDED Hyperlipidemia Kidney stone NO CURRENT ISSUES Surgical History H/O dilation and curettage H/O rectocele repair History of colonoscopy History of hysteroscopy History of lithotripsy History of partial mastectomy of left breast Left partial mastectomy with SLN biopsy on 11/20/2019. NO LIMB RESTRICTIONS. History of surgery Reexcision of excisional biopsy of right breast with SLN biopsy on 01/27/16 Reexcision of reexcision of right breast on 02/17/16 Nausea and vomiting after administration of anesthetic agent SCOPALAMINE PATCH WORKED WITH LAST SURGERY S/P SEBLE-BSO S/P tonsillectomy and adenoidectomy Status post excisional biopsy Right breast on 12/23/15Re Social History Preferred Language: Upper Sorbian Communication Ability: Effective Visual Impairment: No Limitations Hearing Ability: Normal [employer] [place] [employer] [place] Jail Required: No Beliefs That Will Affect Care: None marital status: Current Living Situation: Spouse and Family current occupational status: retired Feels Safe at Home: Yes Smoking Status: Never smoker Second Hand Exposure: Yes (FATHER SMOKED) ; Hx Alcohol Use: Yes Alcohol type: beer and wine Hx Substance Use: No caffeine: Yes (1 cup/day) during the past year weight has: remained stable Review of Systems Review of Systems: All systems reviewed & are unremarkable except as noted in HPI & below Physical Exam Constitutional: WD/WN, vitals as above Eyes: PERRL, conjunctivae normal, anicteric sclerae ENMT: external ear and nose normal, oropharynx normal Neck: trachea midline, no thyromegaly Respiratory: normal respiratory effort Cardiovascular: RRR, no murmur, no edema Gastrointestinal (Abdomen): normal bowel sounds, soft, nontender, no hepatosplenomegaly Musculoskeletal: On physical examination of the right knee there is a trace effusion. There is near full range of motion and no evidence of instability. There is significant tenderness palpation along the medial and lateral joint lines and over the distal femoral condyles. Psychiatric: A+Ox3, euthymic affect Results & Data Results & Data ([facility]) Diagnostic Findings Radiographs of the right knee demonstrate advanced osteoarthritis with joint space narrowing osteophyte formation and [id number] articulation. PG Care Time/CCT Total # of Minutes Spent Total Time Spent with Patient: Total time spent is greater than 50% in coordination of care (as documented) at patient's floor/unit and/or counseling patient: Coding Level of Care Code 15161 Initial Inpt Care Lvl 3 Diagnoses Bilateral primary osteoarthritis of knee M17.0
[2020-03-31] MEDS ORDERED: dexAMETHasone 4 MG TAB PO SCH (06:00)
[2020-03-31] MEDS ORDERED: GABAPENTIN 300 MG CAP PO SCH (06:00)
[2020-03-31] MEDS ORDERED: TRANEXAMIC ACID 1,000 MG **IV Intra-op IV SCH (06:00)
[2020-03-31] MEDS ORDERED: ROPIVACAINE 0.5% HCL/PF 150 MG, BUPIVACAINE 0.5% MPF 30 ML, EPINEPHrine 30MG/30ML (OR U... INFIL SCH (06:00)
[2020-03-31] MEDS ORDERED: LR 60ML/HR IV SCH (06:00)
[2020-03-31] MEDS ORDERED: CEFAZOLIN 2000MG 2,000 MG/15 ML SYR IV SCH (06:00)
[2020-03-31] MEDS ORDERED: FAMOTIDINE 20 MG TAB PO SCH (06:00)
[2020-03-31] MEDS ORDERED: ACETAMINOPHEN 500 MG TAB PO SCH (06:00)
[2020-03-31] MEDS ORDERED: TRANEXAMIC ACID 1,000 MG **IV Pre-op IV SCH (06:00)
[2020-03-31] MEDS ORDERED: LR 500ML BOLUS, THEN 15ML/HR IV SCH (06:00)
[2020-03-31] MEDS ORDERED: BUPIVACAINE 0.25% 30 ML VIAL ONE (06:18)
[2020-03-31] MEDS ORDERED: BUPIVACAINE 0.5 % 5 MG/1 ML PF 10ML VIAL ONE (06:18)
[2020-03-31] MEDS ORDERED: HYDROmorphone INJ 1 MG/ML SYRINGE IV PRN (06:30)
[2020-03-31] MEDS ORDERED: ePHEDrine sulfate 50 MG/ML AMP IV PRN (06:30)
[2020-03-31] MEDS ORDERED: PROPOFOL IV EMULSION 10 MG/ML 20 ML VIAL IV ONE (06:30)
[2020-03-31] MEDS ORDERED: ONDANSETRON INJ 2 MG/ML 2 ML VIAL IV PRN ×2 (06:30→10:40)
[2020-03-31] MEDS ORDERED: LIDOCAINE HCL 2% 2 ML VIAL/AMP(20MG/ML) INFIL ONE (06:30)
[2020-03-31] MEDS ORDERED: fentaNYL citrate 100 MCG/2 ML VIAL IV PRN (06:30)
[2020-03-31] MEDS ORDERED: ATROPINE SULFATE 0.1 MG/ML 10ML SYR IV PRN (06:30)
--- NOTE | 2020-03-31 06:30 | History & Physical Bridge Note ---
Date of Service March 31, 2020 History & Physical Bridge Note I have examined the patient, reviewed the History & Physical and in the interval since the performance of the History & Physical I have noted the following changes of clinical significance: no changes noted
[2020-03-31] MEDS ORDERED: MIDAZOLAM HCL 1 MG/ML 2ML VIAL ONE (06:32)
[2020-03-31] MEDS ORDERED: ORTHO JOINT ANESTHETIC ONE (06:48)
[2020-03-31] MEDS ORDERED: ONDANSETRON INJ 2 MG/ML 2 ML VIAL ONE (06:52)
[2020-03-31] MEDS ORDERED: SCOPOLAMINE 1.5 MG TDSY TD ONE (06:52)
[2020-03-31] MEDS ORDERED: METOCLOPRAMIDE HCL INJ 5 MG/ML 2 ML VIAL ONE (07:14)
--- NOTE | 2020-03-31 08:44 | Operative Report ---
PG Post Operative Report Pre & Post Diagnosis Operation Date: 03/31/20 07:00 Pre-Op Diagnosis: Right Knee Degenerative Joint Disease Post-Op Diagnosis: Right Knee Degenerative Joint Disease I identified the patient and participated in the time-out.: Yes Procedure Operation Date: 03/31/20 07:00 Actual Procedures p Right Total Knee Arthroplasty(Right) - Hernan Mcgowan DO Surgeon Hernan Mcgowan DO Scalemaker Hernan Vilchis PAC Estimated Blood Loss 10 Findings Consistent with Post-Op Diagnosis Specimens Right femoral and tibial bone Complications none Disposition Disposition: Recovery Room Indications Norma is a pleasant 69-year-old female who is been dealing with chronic increasing right knee pain. X-rays and clinical examination have been diagnostic for primary osteoarthritis of the right knee. After failing conservative treatment, she elected proceed with a right total knee arthroplasty. Description of Procedure Implants used: I used a Eileen Persona total knee arthroplasty system with a size 11 narrow femur, G tibia, 32 patella, and a size 12 medial congruent polyethylene bearing. All components were cemented in place with Palacos G cement. Norma arrived [facility] for the above procedure. She was seen in the preoperative holding area and the operative extremity was identified and signed. She was given a preoperative antibiotic, TXA, a spinal anesthetic and an adductor nerve block. She was taken back to the operating room and laid on the table in supine position. She was given basic sedation. The operative knee was then prepped and draped in sterile fashion. A timeout was done, and the patient and the operative extremity was properly identified. A midline incision was made directly over the patella. Dissection was taken down to the extensor mechanism. A subvastus arthrotomy was used. The medial retinaculum was released and the fat pad was mostly excised. The knee was flexed and the ACL, PCL, and meniscus were removed. A drill was sent down the center of the femoral canal followed by an intramedullary amari. Off that amari a distal femoral cutting block was placed. 9 mm was resected off the distal femur at 5 of valgus. A posterior referencing AP sizing guide was then placed on the distal femur. The femur measured to be a size 11. 2 drill holes were placed in 3 of external rotation. A 4-in-1 cutting block was then impacted into place. Anterior, posterior, and chamfer cuts were then made. The proximal tibia was then exposed. An external tibial alignment guide was placed. A tibial cut guide was then anchored in place to resect 2 mm off the low medial side. The proximal tibia was then resected. The tibia measured to be a size G. The tibial plate was then placed in the appropriate rotation and the tibia was drilled and punched. The posterior aspect of the knee was then opened up and any additional meniscus fragments and osteophytes were removed. Trial components were then placed. I used a size 12 medial congruent polyethylene insert. The knee was brought through a full range of motion and felt to be stable. The patella was then everted and 8 mm was resected off the posterior aspect of the patella. The patella measured to be a size 32. 3 peg holes were then drilled. A trial patella was placed. The knee was once again brought through a full range of motion and felt to be stable. Trial components were then removed. The surrounding soft tissues were injected with 100 cc of an orthopedic pain control cocktail. All components were then cemented into place with Palacos G cement. The final polyethylene insert was then snapped into place and the anterior bar was locked. Once cement was dry the tourniquet was deflated. Hemostasis was obtained. A dilute betadyne lavage was then done for 3 minutes. The joint was then irrigated with normal saline solution. The subvastus arthrotomy was then closed with #1 Vicryl suture. The skin was closed with 2-0 Vicryl, 3-0V lock suture, and tracey. A soft compressive dressing was placed. She was then transferred to a hospital bed and taken to the postanesthesia care unit in stable condition. She tolerated the procedure well. Hernan Vilchis PA-C, was present for the entire procedure. He was critical for patient positioning, prepping, draping, retraction exposure, wound closure and application of sterile dressing. I attest to the content of the Intraoperative Record and any orders documented therein. Any exceptions are noted below.
--- NOTE | 2020-03-31 09:29 | XRay Report ---
XR knee RT 1 or 2V routine CLINICAL HISTORY: Postoperative evaluation. COMPARISON: Knee radiographs November 12, 2018. FINDINGS: Alignment of the total right knee arthroplasty is anatomic. No fracture or unexpected radi opaque foreign body. There are skin tracey. IMPRESSION: Expected findings following total right knee arthroplasty. ACT 112: Negative or not required by law. Electronically signed by: Avi Durand M.D. 03/31/2020 9:28 AM
[2020-03-31] MEDS ORDERED: OXYCODONE HCL IR 5 MG TAB (IMMEDIATE RELEASE) PO PRN (10:40)
[2020-03-31] MEDS ORDERED: HYDROmorphone INJ 0.5 MG/0.5 ML SYR IV PRN (10:40)
[2020-03-31] MEDS ORDERED: METOCLOPRAMIDE HCL INJ 5 MG/ML 2 ML VIAL IV PRN (10:40)
[2020-03-31] MEDS ORDERED: MAGNESIUM HYDROXIDE SUSP 30 ML UDC PO PRN (10:40)
[2020-03-31] MEDS ORDERED: bisacodyL 10 MG SUPP PR PRN (10:40)
[2020-03-31] MEDS ORDERED: NALOXONE HCL 0.4 MG/1 ML VIAL/CARP IV PRN (10:40)
[2020-03-31] MEDS: SODIUM CHLORIDE 0.9% 1000ML 1,000 ML IV SCH ×2 (11:31→20:58)
[2020-03-31] MEDS: MULTIVITAMIN TAB PO SCH (13:48)
[2020-03-31] MEDS: DOCUSATE SODIUM 100 MG CAP PO SCH ×2 (13:48→20:59)
[2020-03-31] MEDS: ACETAMINOPHEN 500 MG TAB PO SCH ×2 (13:49→21:00)
[2020-03-31] MEDS: KETOROLAC TROMETHAMINE 15 MG/ML VIAL IV SCH ×3 (13:49→23:30)
[2020-03-31] MEDS: ROSUVASTATIN CALCIUM 5 MG TAB PO SCH ×2 (13:49→13:53)
[2020-03-31] MEDS: ASPIRIN 81 MG ECTAB PO SCH ×2 (13:49→21:00)
[2020-03-31] MEDS: CEFAZOLIN 2000MG 2,000 MG/15 ML SYR IV SCH ×2 (15:40→23:31)
--- NOTE | 2020-03-31 16:06 | Anesthesiology Progress Note ---
Date of Service March 31, 2020 Anesthesia Post Procedure Vital Signs Vital Signs: Temp Pulse Pulse Resp BP BP Pulse Ox 03/31/20 15:42 36.6 C 83 17 118/82 92 03/31/20 12:44 36.3 C L 72 16 127/82 95 03/31/20 11:50 66 16 126/69 97 03/31/20 10:55 62 16 131/81 97 03/31/20 10:20 64 16 134/82 98 03/31/20 09:50 36.4 C L 77 16 146/88 H 95 03/31/20 09:35 68 15 145/80 H 95 03/31/20 09:25 36.2 C L 70 23 149/80 H 94 03/31/20 09:15 67 16 145/78 H 96 03/31/20 09:05 65 14 155/93 H 91 03/31/20 08:58 36.1 C L 78 13 154/93 H 94 03/31/20 06:39 72 18 98 03/31/20 05:29 36.6 C 75 18 156/78 H 94 Transfer of Care Handoff Completed per policy Notes Mental Status: alert / awake / arousable and participated in evaluation Patient Amnestic to Procedure: Yes Nausea / Vomiting: adequately controlled Pain: adequately controlled Airway Patency, RR, SpO2: stable & adequate BP & HR: stable & adequate Hydration State: stable & adequate Neuraxial Anesthesia: was administered and sensory block is resolving Anesthetic Complications: no major complications apparent and Pt Satisfied with anesthetic care
[2020-03-31] MEDS: SENNA 8.6 MG TAB PO SCH (20:59)
[2020-03-31] MEDS ORDERED: NON-FORMULARY MEDICATION (Niacin 500 MG) PO SCH (21:00)
[2020-03-31] MEDS: CALCIUM CARBONATE 500 MG CHEWABLE TAB PO PRN (23:31)
[2020-04-01] MEDS: KETOROLAC TROMETHAMINE 15 MG/ML VIAL IV SCH ×4 (06:12→23:55)
[2020-04-01] MEDS: ACETAMINOPHEN 500 MG TAB PO SCH ×3 (06:12→21:18)
[2020-04-01 06:21] LABS: Hematocrit (blood only) 29.5 % (37-47); Hemoglobin 9.6 g/dL (12.0-16.0); Mean Corpuscular Hemoglobin 30.8 pg (25-34); Mean Corpuscular Hgb Conc 32.5 g/dL (32-36); Mean Corpuscular Volume 94.6 fL (80-100); Mean Platelet Volume 9.6 fL (7.4-10.4); Platelet Count 155 K/uL (130-400); RDW Standard Deviation 47.9 fL (36.4-46.3); Red Blood Count 3.12 M/uL (4.2-5.4); White Blood Count 9.65 K/uL (4.8-10.8)
[2020-04-01 06:49] LABS: BUN Creatinine Ratio 29.1 (10-20); Calcium 8.8 mg/dl (8.5-10.1); Est GFR (African American) 74.2; Potassium 3.9 mmol/L (3.5-5.1)
[2020-04-01] MEDS ORDERED: BUPIVACAINE 0.5 % 5 MG/1 ML MPF 30ML VIAL ONE (06:54)
--- NOTE | 2020-04-01 06:57 | Orthopedic Progress Note ---
Date of Service April 01, 2020 Assessment & Plan (1) History of total right knee replacement: Overall she is doing well. She is having too much pain in the right knee. She will be seen by physical therapy today for ambulation and range of motion exercises. She is on aspirin for DVT prophylaxis. We will see how she does with therapy and pain control today. We plan to discharge her to home tomorrow. Present on Admission?: Yes Subjective Norma was seen and examined at bedside this morning. Overall she is doing fairly well. Is not in too much pain in the right knee. She has been up and ambulating to the bathroom. She has no complaints. Physical Exam Musculoskeletal: On physical examination of the right knee, the dressing has been reinforced. Her right knee is out to full extension. She has active dorsiflexion and plantarflexion of her right ankle. Results & Data ([facility]) Vital Signs (Past 12 Hours) Vital Signs Temp Pulse Resp BP Pulse Ox 04/01/20 04:31 36.6 C 66 12 108/65 93 03/31/20 23:05 36.6 C 69 16 121/70 95 03/31/20 19:26 36.6 C 86 17 124/78 96 Laboratory Results H & H 03/18/20 04/01/20 Range/Units 14:31 05:51 Hgb 12.3 9.6 L (12.0-16.0) g/dL Hct 37.8 29.5 L (37-47) % Coagulation 03/18/20 Range/Units 14:31 INR 1.1 (0.9-1.1) Diagnostic Findings Postoperative x-rays of the right knee show the prosthesis to be in anatomic alignment without any evidence of fracture, dislocation, or loosening. PG Care Time/CCT Total # of Minutes Spent Total Time Spent with Patient: Total time spent is greater than 50% in coordination of care (as documented) at patient's floor/unit and/or counseling patient: Coding Level of Care Code None Diagnoses History of total right knee replacement Z96.651
[2020-04-01] MEDS ORDERED: dexAMETHasone 4 MG TAB PO SCH (08:00)
--- NOTE | 2020-04-01 08:46 | Anesthesiology Progress Note ---
Date of Service April 01, 2020 Anesthesia Post Procedure Vital Signs Vital Signs: Temp Pulse Pulse Resp BP BP Pulse Ox 04/01/20 07:43 36.8 C 69 18 106/65 93 04/01/20 04:31 36.6 C 66 12 108/65 93 03/31/20 23:05 36.6 C 69 16 121/70 95 03/31/20 19:26 36.6 C 86 17 124/78 96 03/31/20 15:42 36.6 C 83 17 118/82 92 03/31/20 12:44 36.3 C L 72 16 127/82 95 03/31/20 11:50 66 16 126/69 97 03/31/20 10:55 62 16 131/81 97 03/31/20 10:20 64 16 134/82 98 03/31/20 09:50 36.4 C L 77 16 146/88 H 95 03/31/20 09:35 68 15 145/80 H 95 03/31/20 09:25 36.2 C L 70 23 149/80 H 94 03/31/20 09:15 67 16 145/78 H 96 03/31/20 09:05 65 14 155/93 H 91 03/31/20 08:58 36.1 C L 78 13 154/93 H 94 Pain Intensity Right Knee: Pain Intensity: 0 Notes Mental Status: alert / awake / arousable and participated in evaluation Patient Amnestic to Procedure: Yes Nausea / Vomiting: adequately controlled Pain: adequately controlled Airway Patency, RR, SpO2: stable & adequate BP & HR: stable & adequate Hydration State: stable & adequate Neuraxial Anesthesia: was administered and sensory block resolved Anesthetic Complications: no major complications apparent and Pt Satisfied with anesthetic care
[2020-04-01] MEDS: ROSUVASTATIN CALCIUM 5 MG TAB PO SCH (09:30)
[2020-04-01] MEDS: ASPIRIN 81 MG ECTAB PO SCH ×2 (09:30→20:04)
[2020-04-01] MEDS: DOCUSATE SODIUM 100 MG CAP PO SCH ×2 (09:30→20:05)
[2020-04-01] MEDS: MULTIVITAMIN TAB PO SCH (09:30)
[2020-04-01] MEDS: CALCIUM CARBONATE 500 MG CHEWABLE TAB PO PRN ×2 (11:38→15:43)
[2020-04-01] MEDS: FAMOTIDINE 20 MG TAB PO SCH (17:42)
[2020-04-01] MEDS: SENNA 8.6 MG TAB PO SCH (20:05)
[2020-04-02] MEDS: ACETAMINOPHEN 500 MG TAB PO SCH (05:22)
[2020-04-02] MEDS: KETOROLAC TROMETHAMINE 15 MG/ML VIAL IV SCH (05:23)
[2020-04-02 07:00] VITALS: PULSE 61; TEMP 97.5
--- NOTE | 2020-04-02 07:52 | Orthopedic Progress Note ---
Date of Service April 02, 2020 Assessment & Plan (1) History of total right knee replacement: Overall she is doing fairly well. She is not having too much pain in the right knee. She has been working well with physical therapy doing ambulation and range of motion exercises. She is on aspirin for DVT prophylaxis. She can be discharged home later today. She will follow-up with orthopedics in 2 weeks. Present on Admission?: Yes Subjective Norma was seen and examined at bedside this morning. Overall she is doing very well. She is having much pain in the right knee. She participated well with physical therapy yesterday. She has no complaints. Physical Exam Musculoskeletal: On physical examination of the right knee, the dressing is clean and dry. Has been reinforced but is no longer draining. Her legs out in full extension. Results & Data ([facility]) Vital Signs (Past 12 Hours) Vital Signs Temp Pulse Resp BP Pulse Ox 04/02/20 06:59 36.4 C L 61 16 107/54 L 94 04/01/20 22:45 36.7 C 59 L 17 113/64 96 PG Care Time/CCT Total # of Minutes Spent Total Time Spent with Patient: Total time spent is greater than 50% in coordination of care (as documented) at patient's floor/unit and/or counseling patient: Coding Level of Care Code None Diagnoses History of total right knee replacement Z96.651
--- NOTE | 2020-04-02 07:54 | Discharge Summary ---
Date of Service April 02, 2020 Admission HPI Per Admitting Provider Norma is a pleasant 69-year-old female who is been dealing with chronic increasing right knee pain. X-rays and clinical examination are diagnostic for primary osteoarthritis of the right knee. After failing years of conservative treatment including multiple injections, she has elected to proceed with a right total knee arthroplasty. Principal Diagnosis Right total knee arthroplasty Discharge Data Allergies Allergy/AdvReac Type Severity Reaction Status Date / Time No Known Allergies Allergy Mild Verified 03/31/20 05:38 Consultations 03/31/20 10:40 Consult Case Management - Discharge Planning Routine Procedures Performed Operation Date: 03/31/20 07:00 Actual Procedures p Right Total Knee Arthroplasty(Right) - Hernan Mcgowan DO Ordered Studies 03/31/20 05:00 US - OR guided needle placemen Routine Hospital Course (1) History of total right knee replacement: On March 31, 2020 Norma arrived at [facility] and underwent a right total knee arthroplasty without complication. She had a spinal anesthetic. Postoperatively she was started on aspirin for DVT prophylaxis and transferred to the general orthopedic floors. Her hospital course was uneventful. On postop day #1 her H&H was stable and her pain was well controlled. She was able to participate well with physical therapy doing ambulation and range of motion exercises. On postop day #2 she continued to do well. She was seen once again by physical therapy. She was then discharged home. She will follow-up with orthopedics in 2 weeks. Total Time Total Time Spent Total Time Spent (In Minutes): 20 Discharge Plan Discharge Items Patient Disposition: Home - Home Health Services Reason For Visit: Degenerative Joint Disease Right Knee Discharge Diagnosis: Right total knee arthroplasty Activity: As commented below Non-emergency contact: Surgeon Call non-emergency contact if: your wound has increased redness and your wound has increased drainage Follow-up/Referrals: Nel Mora DO [Primary Care Provider] - Diet: Regular Addtl Attending Provider Instructions: Activity and Therapy Recommendations: * If you are using [facility] then therapy will be provided at your home until they feel you have accomplished all of your goals. * If you are using [facility] then Physical Therapy will be provided until they feel you are ready to start Outpatient Physical Therapy. * If you are not using home therapy then Outpatient Physical Therapy should start about 3-5 days from your day of surgery. Therapy will last about 6-10 weeks * It is important not to put a pillow under your knee when you are relaxing or sleeping. It is just as important to make sure you are getting your knee perfectly straight as it is to regain your knee bend. * You were shown a series of exercises in the hospital. Do these exercises three times each day including the exercises you were shown in physical therapy. * Get up and walk several times each day. For the first four weeks, try not to stand or walk for more than one hour at a time. If you do stand or walk for more than one hour, you will not hurt anything, but your leg will likely swell. * As you feel comfortable, you may change from the walker or crutches to a cane and then to independent walking. Medications: * Narcotic You will likely be sent home from the hospital with a prescription for the narcotic pain medication that worked best throughout your stay. * Aspirin Most patients will be required to take Aspirin 81mg twice a day for 6 weeks after surgery. This is obtained [id number] and a prescription is not necessary. * Other medications may be prescribed for specific circumstances. If you have any questions, please call the office at . * Resume previous home medications unless otherwise instructed TEDs/Elastic Stockings: The white elastic stockings help limit swelling and prevent blood clots from forming in your legs.~ The more you wear them, the more they work. Wear them for six weeks. Dressing Care: Leave the Silverlon dressing on for 7 days. After 7 days you may remove the dressing. IF the incision is not draining then you may leave the tracey open to air. If there is a little bit of drainage or if the tracey are getting stuck on your clothing then cover the incision with a dry dressing. The tracey will be removed at your 2 week follow-up appointment. Showering: You may shower with the Silverlon dressing in place. Do not scrub or soak the dressing. Pat it dry. After 7 days you may remove the Silverlon dressing and shower with the tracey exposed. Let the soapy shower water run over the tracey and pat them dry. Do not scrub or soak the incision. Things To Watch For: * Drainage from the incision site that occurs more than one week after your surgery. * Increased redness at the incision site. * Fever above 102 degrees Fahrenheit. * Unusual chest pain or shortness of breath. * Call [facility] at with any of the above problems Follow-Up Visit: Follow-up with Dr. Mcgowan's PA (Hernan Vilchis) 2-3 weeks after your day of surgery. He will remove your tracey and answer any questions. If you have any additional questions or concerns, Dr Mcgowan is usually in the office at the same time and will be available An appointment was probably scheduled when you signed-up for surgery in the office. If you have any questions call Office Instructions: More detailed instructions as well as Frequently Asked Questions were provided in a folder by our office when you signed-up for surgery. Please review these instructions when you get home. If you have any further questions or concerns, please feel free to call the office at [phone] Pending Studies at Discharge: No Stand-Alone Forms: My [facility], Smoking Cessation Medications and DC Order Prescriptions: New oxycodone 5 mg Tablet 5 mg PO Q4H PRN (Reason: pain) Qty: 30 RF: 0 aspirin 81 mg Tablet,Delayed Release (Dr/Ec) 81 mg PO BID 42 Days Qty: 0 RF: 0 Continued rosuvastatin [Crestor] 5 mg tablet 5 mg PO QAM RF: 0 (DME) hunter [facility] [place] See Rx Instructions .ROUTE .MEDSUPPLY Qty: 1 RF: 0 (DME) hunter [facility] [place] See Rx Instructions .ROUTE .MEDSUPPLY Qty: 1 RF: 0 multivitamin Tablet 1 tab PO QAM RF: 0 ibuprofen 200 mg Capsule 600 mg PO QAM RF: 0 calcium polycarbophil [FiberCon] 625 mg Tablet 1,250 mg PO HS RF: 0 docusate sodium [Colace] 100 mg Capsule 100 mg PO HS RF: 0 niacin 500 mg Capsule, Extended Release 500 mg PO HS RF: 0 cholecalciferol (vitamin D3) [Vitamin D3] 1,000 unit Capsule 1,000 unit PO QAM RF: 0 Laurie-D 24 Hour 180-240 mg Tablet Extended Release 24 Hr 1 tab PO QAM PRN (Reason: Allergy Symptoms) RF: 0 Caltrate 600 plus D 600 mg (1,500 mg)-800 unit Tablet,Chewable 1 tab PO QAM RF: 0 sennosides [Vegetable Laxative] 8.6 mg Tablet 8.6 mg PO HS PRN (Reason: Constipation) RF: 0 Discharge Orders: Discharge Order (Routine); Ordered 04/02/20 Ordered By: Hernan Mcgowan Admission Data Admit Date/Time: 03/31/20 09:01 Attending Provider: Hernan Mcgowan Admit Provider: Hernan Mcgowan Primary Care Provider: Nel Mora Other Providers: [facility],Home Health Coding Level of Care Code D/C Day Management <30 mins Diagnoses History of total right knee replacement Z96.651
[2020-04-02] MEDS: ROSUVASTATIN CALCIUM 5 MG TAB PO SCH (08:13)
[2020-04-02] MEDS: FAMOTIDINE 20 MG TAB PO SCH (08:13)
[2020-04-02] MEDS: DOCUSATE SODIUM 100 MG CAP PO SCH (08:13)
[2020-04-02] MEDS: MULTIVITAMIN TAB PO SCH (08:13)
[2020-04-02] MEDS: ASPIRIN 81 MG ECTAB PO SCH (08:13)
[2020-04-02 08:56] VITALS: BP 106/65
[2020-04-02 12:53] VITALS: O2SAT 96
== END 2020-04-02 12:00 | disposition home health service (06) | DRG 470 ==
LOC: ASU 05:05 → 3N 05:05 → OBSVTOIN 09:01

== ENCOUNTER 2020-11-27 13:01 | Observation (INO) ==
--- NOTE | 2020-10-30 11:15 | PAT Medication Instructions ---
Medication Instructions Date of Service October 30, 2020 Home Medications Medication Instructions Recorded walker #1 ea 02/11/20 walker #1 ea 02/11/20 amoxicillin 500 mg tablet 2,000 mg PO ONCE PRN #4 tab 09/14/20 Laurie-D 24 Hour 1 tab PO QAM PRN Caltrate 600 plus D 1 tab PO QAM calcium polycarbophil [FiberCon] 1,250 mg PO HS cholecalciferol (vitamin D3) [Vitamin D3] 1,000 unit PO QAM docusate sodium [Colace] 100 mg PO HS multivitamin 1 tab PO QAM sennosides [Vegetable Laxative] 8.6 mg PO HS PRN ibuprofen 200 mg capsule 600 mg PO BID PRN amoxicillin 500 mg tablet 2,000 mg PO ONCE PRN rosuvastatin [Crestor] 10 mg PO HS Continue as directed amoxicillin 500 mg tablet 2,000 mg PO ONCE PRN (prior to dental procedures) ASK your surgeon for instructions ibuprofen 200 mg capsule 600 mg PO BID PRN DO NOT take the morning of surgery Laurie-D 24 Hour 1 tab PO QAM PRN Caltrate 600 plus D 1 tab PO QAM cholecalciferol (vitamin D3) [Vitamin D3] 1,000 unit PO QAM multivitamin 1 tab PO QAM Take evening before surgery calcium polycarbophil [FiberCon] 1,250 mg PO HS docusate sodium [Colace] 100 mg PO HS sennosides [Vegetable Laxative] 8.6 mg PO HS PRN (if needed) rosuvastatin [Crestor] 10 mg PO HS Other Notes If you have any questions please call us at [phone] or [phone] or [phone] or [phone]
--- NOTE | 2020-11-03 11:50 | Anesthesiology Consultation ---
Date of Service November 03, 2020 Assessment & Plan (1) Encounter for pre-operative examination: - Per assessment on 11/03: Travel screen negative. No known COVID-19 positive contacts or current COVID-19 related symptoms. Surgeon arranging preop COVID t esting. Awaiting results. - Hx PONV: Patient states that in the past she had PONV in the past that was significantly improved when scope patch used with previous breast surgeries. She subsequently had Right TKA 03/31/20 (SAB x1 attempt at L4-L5 + PNB at [facility]) in which patient had significant nausea/flushed feeling immediately after PNB/SAB placement which lead to multiple antiemetics/improvement in symptoms. Decision between patient/anesthesia to proceed with either spinal/light sedation vs. GETA. Decision made to proceed with SAB/light sedation. Patient states she did hear things perioperatively. She wishes to have upcoming Left TKA done under General anesthesia if possible (does not want SAB again). Advised patient to discuss further AM DOS. Chart Review Chart Review: Acceptable Risk for Surgery and Patient seen in Pre Admission Testing Teaching & Discussion Pre-Anesthesia Teaching/Discussion Notes: Instructed NPO after midnight before surgery,except medications with 15 cc of water. Medication instructions provided according to the PAT guidelines. History Surgery Operation Date: 11/27/20 08:30 Proposed Procedures p Left Total Knee Arthroplasty - Hernan Mcgowan, Height/Weight Height: 5 ft 10 in Weight: 117.3 kg Allergies Allergy/AdvReac Type Severity Reaction Status Date / Time No Known Allergies Allergy Mild Verified 10/22/20 11:58 Medications Home Medications Medication Instructions Recorded Confirmed Last Taken Laurie-D 24 Hour 1 tab PO QAM PRN 10/23/18 11/03/20 Unknown Caltrate 600 plus D 1 tab PO QAM 10/23/18 11/03/20 03/29/20 calcium polycarbophil [FiberCon] 1,250 mg PO HS 10/23/18 11/03/20 03/29/20 cholecalciferol (vitamin D3) 1,000 unit PO QAM 10/23/18 11/03/20 03/29/20 [Vitamin D3] docusate sodium [Colace] 100 mg PO HS 10/23/18 11/03/20 03/30/20 21:30 multivitamin 1 tab PO QAM 10/23/18 11/03/20 03/29/20 walker #1 ea 02/11/20 11/03/20 Unknown walker #1 ea 02/11/20 11/03/20 Unknown sennosides [Vegetable Laxative] 8.6 mg PO HS PRN 03/31/20 11/03/20 03/29/20 21:00 ibuprofen 200 mg capsule 600 mg PO BID PRN cap 05/28/20 11/03/20 Unknown amoxicillin 500 mg tablet 2,000 mg PO ONCE PRN #4 tab 09/14/20 11/03/20 Unknown rosuvastatin [Crestor] 10 mg PO HS 10/22/20 11/03/20 Unknown Past Medical History Medical History Breast cancer excisional biopsy of right breast (2015) s/p XRT, left (10/2019) Endometrial cancer found incidentally several years ago (after hysterectomy) Fibromyalgia stable GERD (gastroesophageal reflux disease) controlled Hyperlipidemia Kidney stone hx Exercise / Class Metabolic Activity II 4-5 Yardwork/Stairs/Walk up hill (one flight of stairs (no chest pain/no SOB)) Past Surgical History Surgical History H/O dilation and curettage H/O rectocele repair History of colonoscopy History of lithotripsy History of partial mastectomy of left breast Left partial mastectomy with SLN biopsy on 11/20/19 (no limb restrictions per patient) History of surgery Reexcision of excisional biopsy of right breast with SLN biopsy on 01/27/16 Reexcision of reexcision of right breast on 02/17/16 History of total right knee replacement Right TKA: 03/31/20: SAB x1 attempt at L4-L5 + PNB at [facility] S/P SEBLE-BSO S/P tonsillectomy and adenoidectomy Status post excisional biopsy Right breast (2015) Past Anesthesia History Other (Awareness (could hear sounds) with Right TKA ) History of PONV History of PONV (Significant improvement with breast surgery (with scope patch)) Social History Smoking Status: Never smoker Do You Dip or Chew Tobacco: No Hx Alcohol Use: Yes Alcohol type: beer and wine alcohol intake frequency: holidays/special occasions only Hx Substance Use: No substance use type: does not use Review of Systems Patient denies chest pain, shortness of breath, dyspnea on exertion, fever, chills, cough, wheezing, palpitations. Physical Exam Vital Signs VITALS BP 144/88 P 73 TEMP 97.7 SP02 96%RA RESP 16 PHYSICAL Full neck and c-spine range of motion. Full TMJ range of motion. TMD 3 finger breaths Mallampati Score 3 Dentition: several missing molars, ? crown on upper front Lungs: clear throughout to auscultation Cardiac: regular rate and rhythm, no murmurs noted Spine: normal Carotid arteries: negative bruit Extremities: no edema Testing Laboratory Results 11/03/20 12:07 11/03/20 12:07 PT 10.4 Seconds (9.0-12.0) 11/03/20 12:07 INR 1.0 (0.9-1.1) 11/03/20 12:07 APTT 27.3 Seconds (21.0-31.0) 11/03/20 12:07 Blood Type O Positive 11/03/20 12:07 Antibody Screen NEGATIVE 11/03/20 12:07 11/03/20 WBC 5.10 H/H 12.2/37.3 PLATELETS 203 SODIUM 140 POTASSIUM 4.2 CHLORIDE 107 CO2 28 BUN 19 CREATININE 0.81 GLUCOSE 118 PT 10.4 PTT 27.3 INR 1.0 TYPE AND SCREEN O+ Ab- Electrocardiogram Date: 11/03/20 NSR at 70bpm. NS IVCD. 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 Chest X-Ray Date: 03/18/20 FINDINGS: Lung volumes are normal. Lungs are clear. There is no pneumothorax or pleural effusion. Mild cardiomegaly is noted. Mediastinal contours are normal. There is no evidence for pulmonary edema. A sclerotic focus within the left first rib is unchanged from earlier chest radiograph and treatment planning CT of December 12, 2019. This is benign. There is a moderate sized hiatal hernia. IMPRESSION: No acute findings. Mild cardiomegaly.
[2020-11-03 13:14] LABS: Basophils # (auto) 0.02 K/uL (0-0.2); Basophils % (auto) 0.4 %; Hematocrit (blood only) 37.3 % (37-47); Hemoglobin 12.2 g/dL (12.0-16.0); Immature Granulocytes # (auto) 0.01 K/uL (0.00-0.02); Immature Granulocytes % (auto) 0.2 %; Lymphocytes % (auto) 23.5 %; Mean Corpuscular Hemoglobin 31.4 pg (25-34); Mean Corpuscular Hgb Conc 32.7 g/dL (32-36); Mean Corpuscular Volume 95.9 fL (80-100); Mean Platelet Volume 9.9 fL (7.4-10.4); Monocytes # (auto) 0.52 K/uL (0.11-0.59); Monocytes % (auto) 10.2 %; Neutrophils # (auto) 3.25 K/uL (1.4-6.5); Neutrophils % (auto) 63.7 %; Platelet Count 203 K/uL (130-400); RDW Coefficient of Variation 14.1 % (11.5-14.5); RDW Standard Deviation 49.6 fL (36.4-46.3); Red Blood Count 3.89 M/uL (4.2-5.4)
[2020-11-03 13:26] LABS: Partial Thromboplastin Time 27.3 Seconds (21.0-31.0); Prothrombin Time 10.4 Seconds (9.0-12.0)
[2020-11-03 13:36] LABS: BUN Creatinine Ratio 23.7 (10-20); Calcium 9.6 mg/dl (8.5-10.1); Creatinine Clr Calc Pharmacy 91.1 ml/min; Est GFR (African American) 85.9; Est GFR (Non-African American) 74.1; Potassium 4.2 mmol/L (3.5-5.1)
--- NOTE | 2020-11-03 14:37 | Electrocardiogram Report ---
Test Reason : Blood Pressure : / mmHG Vent. Rate : 070 BPM Atrial Rate : 070 BPM P-R Int : 170 ms QRS Dur : 118 ms QT Int : 414 ms P-R-T Axes : 049 045 036 degrees QTc Int : 447 ms Normal sinus rhythm Non-specific intra-ventricular conduction delay Borderline ECG When compared with ECG of 30-AUG-2008 04:49, No significant change was found Confirmed by Amando Hernandez ([id number]) on 11/03/2020 2:37:04 PM Referred By: Hernan Mcgowan Confirmed By:Amando Hernandez
--- NOTE | 2020-11-26 16:01 | History & Physical Report ---
Date of Service November 26, 2020 Assessment & Plan (1) Osteoarthritis of left knee: We will proceed with a left total knee arthroplasty. Postoperatively she will be started on aspirin for DVT prophylaxis and kept overnight in the hospital for postoperative medical management. She plans to use home health upon discharge. History of Present Illness Chief Complaint: Osteoarthritis of left knee. Primary Care Provider: NO PCP Norma is a pleasant 70-year-old female who is been ill with chronic increasing left knee pain. X-rays and clinical examination have been diagnostic for advanced osteoarthritis of the left knee. After failing conservative treatment, she has elected proceed with a left total knee arthroplasty. I did a right knee replacement on her in March 2020 and she is done very well with that.. Allergies Allergy/AdvReac Type Severity Reaction Status Date / Time No Known Allergies Allergy Mild Verified 11/09/20 10:06 Home Medications Medication Instructions Recorded Confirmed Type Laurie-D 24 Hour 1 tab PO QAM PRN 10/23/18 11/03/20 History Caltrate 600 plus D 1 tab PO QAM 10/23/18 11/03/20 History calcium polycarbophil [FiberCon] 1,250 mg PO HS 10/23/18 11/03/20 History cholecalciferol (vitamin D3) 1,000 unit PO QAM 10/23/18 11/03/20 History [Vitamin D3] docusate sodium [Colace] 100 mg PO HS 10/23/18 11/03/20 History multivitamin 1 tab PO QAM 10/23/18 11/03/20 History walker #1 ea 02/11/20 11/03/20 Rx walker #1 ea 02/11/20 11/03/20 Rx sennosides [Vegetable Laxative] 8.6 mg PO HS PRN 03/31/20 11/03/20 History ibuprofen 200 mg capsule 600 mg PO BID PRN cap 05/28/20 11/03/20 History amoxicillin 500 mg tablet 2,000 mg PO ONCE PRN #4 tab 09/14/20 11/03/20 Rx rosuvastatin [Crestor] 10 mg PO HS 10/22/20 11/03/20 History Past Med/Surg History Medical History Breast cancer excisional biopsy of right breast (2015) s/p XRT, left (10/2019) Endometrial cancer found incidentally several years ago (after hysterectomy) Fibromyalgia stable GERD (gastroesophageal reflux disease) controlled Hyperlipidemia Kidney stone hx Surgical History H/O dilation and curettage H/O rectocele repair History of colonoscopy History of lithotripsy History of partial mastectomy of left breast Left partial mastectomy with SLN biopsy on 11/20/19 (no limb restrictions per patient) History of surgery Reexcision of excisional biopsy of right breast with SLN biopsy on 01/27/16 Reexcision of reexcision of right breast on 02/17/16 History of total right knee replacement Right TKA: 03/31/20: SAB x1 attempt at L4-L5 + PNB at [facility] S/P SEBLE-BSO S/P tonsillectomy and adenoidectomy Status post excisional biopsy Right breast (2015) Social History Smoking Status: Never smoker Second Hand Exposure: No; Hx Alcohol Use: Yes Alcohol type: beer and wine Hx Substance Use: No Preferred Language: Portuguese Communication Ability: Effective Visual Impairment: No Limitations Hearing Ability: Normal Logistics Planner Required: No Beliefs That Will Affect Care: None marital status: Current Living Situation: Spouse current occupational status: retired Feels Safe at Home: Yes caffeine: Yes (1 cup/day) during the past year weight has: remained stable Assistive Devices: Glasses Review of Systems All systems reviewed & are unremarkable except as noted in HPI & below. Physical Exam On physical examination of the left knee, she has a slight varus deformity. She has tenderness palpation of the distal medial femoral condyle and over the medial joint line. She has no instability.. Constitutional WD/WN, vitals as above Eyes PERRL, conjunctivae normal, anicteric sclerae ENMT external ear and nose normal, oropharynx normal Neck trachea midline, no thyromegaly Respiratory normal respiratory effort Cardiovascular RRR, no murmur, no edema Gastrointestinal (Abdomen) normal bowel sounds, soft, nontender, no hepatosplenomegaly Psychiatric A+Ox3, euthymic affect Results & Data Results & Data Laboratory Results . Diagnostic Findings X-rays of the left knee do show advanced osteoarthritis with joint space n arrowing, osteophyte formation, and [id number] articulation. Mostly involves the medial side.. PG Care Time/CCT Total # of Minutes Spent Total Time Spent with Patient: Total time spent is greater than 50% in coordination of care (as documented) at patient's floor/unit and/or counseling patient: Coding Level of Care Code None Diagnoses Osteoarthritis of left knee M17.12
--- NOTE | 2020-11-27 12:19 | History & Physical Bridge Note ---
Date of Service November 27, 2020 History & Physical Bridge Note I have examined the patient, reviewed the History & Physical and in the interval since the performance of the History & Physical I have noted the following changes of clinical significance: no changes noted
[~2020-11-27 13:01] MED LIST changes: +ACETAMINOPHEN 500 MG TAB PO SCH; -ASPCH81X PO; +BUPIVACAINE 0.25% 30 ML VIAL ONE; +BUPIVACAINE 0.5 % 5 MG/1 ML PF 10ML VIAL ONE; -CALC625T PO; -CALCTAB7 PO; -CHOL100010 PO; +DEXAMETHASONE SOD INJ 4 MG/ML VIAL ONE; -DOCU-94 PO; +EPINEPHrine INJ 1 MG/ML AMP ONE; +FAMOTIDINE 20 MG TAB PO SCH; -FEXO1TAB58 PO; +GABAPENTIN 300 MG CAP PO SCH; -IBUP600T44 PO; +LIDOCAINE 2% 2 ML VIAL/AMP(20MG/ML) INFIL ONE; +LR 15ML/HR IV SCH; +LR 60ML/HR IV SCH; +MIDAZOLAM HCL 1 MG/ML 2ML VIAL ONE; -MULT-506 PO; -NIAC500T11 PO; -OMEG10007 PO; +PROPOFOL IV EMULSION 10 MG/ML 20 ML VIAL IV ONE; +ROPIVACAINE 0.5% HCL/PF 150 MG, BUPIVACAINE 0.75% MPF 20 ML, EPINEPHrine 30MG/30ML (OR ... INSTIL SCH; -SULF800T23 PO; +TRANEXAMIC ACID 1,000 MG **IV Intra-op IV SCH; +TRANEXAMIC ACID 1,000 MG **IV Pre-op IV SCH; +ceFAZolin 2000MG 2,000 MG/15 ML SYR IV SCH; +dexAMETHasone 4 MG TAB PO SCH; +fentaNYL citrate 100 MCG/2 ML VIAL ONE
[2020-11-27] MEDS ORDERED: ORTHO JOINT ANESTHETIC ONE (13:27)
[2020-11-27] MEDS ORDERED: ONDANSETRON INJ 2 MG/ML 2 ML VIAL ONE ×2 (14:15→14:52)
[2020-11-27] MEDS ORDERED: SCOPOLAMINE 1 MG TDSY TD ONE (14:18)
[2020-11-27] MEDS ORDERED: fentaNYL citrate 100 MCG/2 ML VIAL ONE (14:41)
[2020-11-27] MEDS ORDERED: MIDAZOLAM HCL 1 MG/ML 2ML VIAL ONE (14:50)
[2020-11-27] MEDS ORDERED: diphenhydrAMINE 50 MG/ML VIAL ONE (14:52)
[2020-11-27] MEDS ORDERED: DEXAMETHASONE SOD INJ 4 MG/ML VIAL ONE (14:52)
[2020-11-27] MEDS ORDERED: HYDROmorphone INJ 1 MG/ML SYRINGE ONE ×2 (14:53→15:04)
[2020-11-27] MEDS ORDERED: ATROPINE SULFATE 0.1 MG/ML 10ML SYR IV PRN (15:10)
[2020-11-27] MEDS ORDERED: HYDROmorphone INJ 2 MG/ML SYR/VIAL IV PRN (15:10)
[2020-11-27] MEDS ORDERED: ONDANSETRON INJ 2 MG/ML 2 ML VIAL IV PRN ×2 (15:10→17:00)
[2020-11-27] MEDS ORDERED: fentaNYL citrate 100 MCG/2 ML VIAL IV PRN (15:10)
[2020-11-27] MEDS ORDERED: PROMETHAZINE HCL 6.25 MG in SODIUM CHLORIDE 0.9% 50 ML IV PRN (15:10)
[2020-11-27] MEDS ORDERED: ePHEDrine sulfate 50 MG/ML AMP IV PRN (15:10)
[2020-11-27] MEDS ORDERED: ePHEDrine sulfate 50 MG/ML SYR ONE (15:41)
--- NOTE | 2020-11-27 15:50 | Operative Report ---
PG Post Operative Report Pre & Post Diagnosis Operation Date: 11/27/20 14:20 Pre-Op Diagnosis: Degenerative Left Knee Joint Disease Post-Op Diagnosis: Degenerative Left Knee Joint Disease I identified the patient and participated in the time-out.: Yes Procedure Operation Date: 11/27/20 14:20 Actual Procedures p Left Total Knee Arthroplasty(Left) - Hernan Mcgowan DO Surgeon Hrenan Mcgowan DO [employer] Hernan Vilchis PAC Estimated Blood Loss 20 Findings Consistent with Post-Op Diagnosis Specimens Left femoral and tibial bone Complications none Disposition Disposition: Recovery Room Indications Norma is a pleasant 70-year-old female who is been doing with chronic increasing left knee pain. X-rays and clinical examination have been diagnostic for advanced osteoarthritis of the left knee. After failing conservative treatment, she has elected to proceed with a left total knee arthroplasty. I did a right knee replacement on her in March 2020 and she did very well with that. Description of Procedure Implants used: I used a Eileen Persona total knee arthroplasty system with a size 11 narrow femur, G tibia, 32 patella, and a size 12 medial congruent polyethylene bearing. All components were cemented in place with Palacos G cement. Norma arrived [facility] for the above procedure. She was seen in the preoperative holding area and the operative extremity was identified and signed. She was given a preoperative antibiotic, TXA, a spinal anesthetic and an adductor nerve block. She was taken back to the operating room and laid on the table in supine position. She was given basic sedation. The operative knee was then prepped and draped in sterile fashion. A timeout was done, and the patient and the operative extremity was properly identified. A midline incision was made directly over the patella. Dissection was taken down to the extensor mechanism. A subvastus arthrotomy was used. The medial retinaculum was released and the fat pad was mostly excised. The knee was flexed and the ACL, PCL, and meniscus were removed. A drill was sent down the center of the femoral canal followed by an intramedullary amari. Off that amari a distal femoral cutting block was placed. 9 mm was resected off the distal femur at 5 of valgus. A posterior referencing AP sizing guide was then placed on the distal femur. The femur measured to be a size 11 narrow. 2 drill holes were placed in 3 of external rotation. A 4-in-1 cutting block was then impacted into place. Anterior, posterior, and chamfer cuts were then made. The proximal tibia was then exposed. An external tibial alignment guide was placed. A tibial cut guide was then anchored in place and the proximal tibia was then resected. The posterior aspect of the knee was then opened up and any additional meniscus fragments and osteophytes were removed. The tibia measured to be a size G. The tibial plate was then placed in the appropriate rotation and the tibia was drilled and punched. Trial components were then placed. I used a size 12 medial congruent polyethylene insert. The knee was brought through a full range of motion and felt to be stable. The peg holes for the femoral component were then drilled. The patella was then everted and 9 mm was resected off the posterior aspect of the patella. The patella measured to be a size 32. 3 peg holes were then drilled. A trial patella was placed. The knee was once again brought through a full range of motion and felt to be stable. Trial components were then removed. The surrounding soft tissues were injected with 100 cc of an orthopedic pain control cocktail. All components were then cemented into place with Palacos G cement. The final polyethylene insert was then snapped into place. Once cement was dry the tourniquet was deflated. Hemostasis was obtained. A dilute betadyne lavage was then done for 3 minutes. The joint was then irrigated with normal saline solution. The subvastus arthrotomy was then closed with #1 Vicryl suture. The skin was closed with 2-0 Vicryl, 3-0V lock suture, and tracey. A Silverlon and a soft compressive dressing were placed. She was then transferred to a hospital bed and taken to the postanesthesia care unit in stable condition. She tolerated the procedure well. Hernan Vilchis PA-C, was present for the entire procedure. He was critical for patient positioning, prepping, draping, retraction exposure, wound closure and application of sterile dressing. I attest to the content of the Intraoperative Record and any orders documented therein. Any exceptions are noted below.
[2020-11-27] MEDS ORDERED: KETAMINE 50 MG/5 ML SYRINGE ONE (16:32)
--- NOTE | 2020-11-27 16:37 | XRay Report ---
TWO VIEWS LEFT KNEE CLINICAL HISTORY: Postoperative examination. FINDINGS: AP and crosstable lateral portable views of the left knee are obtained. A left knee arthrop lasty is in near anatomic alignment. There has been undersurface remodeling of the patella. No acute fracture is seen. There are expected postoperative changes around the knee including skin clips, soft tissue edema, and subcutaneous gas. IMPRESSION: Expected postoperative changes status post left knee arthroplasty. No acute fracture is s een. ACT 112: Negative or not required by law. Electronically signed by: Robin Cartagena M.D. 11/27/2020 4:36 PM
--- NOTE | 2020-11-27 16:45 | Anesthesiology Progress Note ---
Date of Service November 27, 2020 Anesthesia Post Procedure Vital Signs Vital Signs: Temp Pulse Pulse Resp BP BP Pulse Ox 11/27/20 16:35 81 14 141/65 H 94 11/27/20 16:25 80 14 145/71 H 94 11/27/20 16:15 79 12 142/72 H 94 11/27/20 16:08 98.1 F 77 19 140/68 93 11/27/20 14:15 81 18 166/100 H 97 11/27/20 13:42 98.2 F 82 20 159/101 H 96 Pain Intensity Left Knee: Pain Intensity: 3 Transfer of Care Handoff Completed per policy Notes Mental Status: alert / awake / arousable and participated in evaluation Patient Amnestic to Procedure: Yes Nausea / Vomiting: adequately controlled Pain: adequately controlled Airway Patency, RR, SpO2: stable & adequate BP & HR: stable & adequate Hydration State: stable & adequate Anesthetic Complications: no major complications apparent and Pt Satisfied with anesthetic care
[2020-11-27] MEDS ORDERED: bisacodyL 10 MG SUPP PR PRN (17:00)
[2020-11-27] MEDS ORDERED: MAGNESIUM HYDROXIDE SUSP 30 ML UDC PO PRN (17:00)
[2020-11-27] MEDS ORDERED: NALOXONE HCL 0.4 MG/1 ML VIAL/CARP IV PRN (17:00)
[2020-11-27] MEDS ORDERED: oxyCODONE HCL IR 5 MG TAB (IMMEDIATE RELEASE) PO PRN (17:00)
[2020-11-27] MEDS ORDERED: METOCLOPRAMIDE HCL INJ 5 MG/ML 2 ML VIAL IV PRN (17:00)
[2020-11-27] MEDS ORDERED: HYDROmorphone INJ 0.5 MG/0.5 ML SYR IV PRN (17:00)
[2020-11-27] MEDS: SODIUM CHLORIDE 0.9% 1000ML 1,000 ML IV SCH (18:00)
[2020-11-27] MEDS: KETOROLAC TROMETHAMINE 15 MG/ML VIAL IV SCH ×2 (18:01→23:30)
[2020-11-27] MEDS ORDERED: SENNA 8.6 MG TAB PO SCH (21:00)
[2020-11-27] MEDS: ACETAMINOPHEN 500 MG TAB PO SCH (22:10)
[2020-11-27] MEDS: ceFAZolin 2000MG 2,000 MG/15 ML SYR IV SCH (22:10)
[2020-11-27] MEDS: DOCUSATE SODIUM 100 MG CAP PO SCH (22:11)
[2020-11-27] MEDS: ASPIRIN 81 MG ECTAB PO SCH (22:11)
[2020-11-28] MEDS: SODIUM CHLORIDE 0.9% 1000ML 1,000 ML IV SCH (04:09)
[2020-11-28] MEDS: ceFAZolin 2000MG 2,000 MG/15 ML SYR IV SCH (06:27)
[2020-11-28] MEDS: KETOROLAC TROMETHAMINE 15 MG/ML VIAL IV SCH ×2 (06:28→12:21)
[2020-11-28] MEDS: ACETAMINOPHEN 500 MG TAB PO SCH ×2 (06:28→12:46)
[2020-11-28 07:06] VITALS: BP 104/65; PULSE 69; TEMP 97.5; O2SAT 90
[2020-11-28 07:18] LABS: Hematocrit (blood only) 34.5 % (37-47); Hemoglobin 11.2 g/dL (12.0-16.0); Mean Corpuscular Hemoglobin 31.1 pg (25-34); Mean Corpuscular Hgb Conc 32.5 g/dL (32-36); Mean Corpuscular Volume 95.8 fL (80-100); Mean Platelet Volume 9.2 fL (7.4-10.4); Platelet Count 178 K/uL (130-400); RDW Standard Deviation 48.9 fL (36.4-46.3)
[2020-11-28 07:58] LABS: BUN Creatinine Ratio 27.2 (10-20); Calcium 8.9 mg/dl (8.5-10.1); Creatinine Clr Calc Pharmacy 89.2 ml/min; Est GFR (African American) 84.6; Potassium 4.4 mmol/L (3.5-5.1)
--- NOTE | 2020-11-28 07:58 | Orthopedic Progress Note ---
Date of Service November 28, 2020 Assessment & Plan (1) Status post left knee replacement: Overall she is doing very well. She is not having much pain in the left knee. She will be seen by physical therapy this morning for ambulation and range of motion exercises. She is on aspirin for DVT prophylaxis. If she feels comfortable she may want to be discharged to home later today. The discharge instructions are done. However, if she is not feeling well or feeling unsteady then she can stay until tomorrow. Xavi Green was seen and examined at bedside this morning. Overall she is doing very well. She is not having any pain in the left knee. She has been up and ambulating to the bathroom. She has no complaints.. Review of Systems All systems reviewed & are unremarkable except as noted in HPI & below. Physical Exam On physical examination of the left knee, the dressing is clean and dry. Her leg is out in full extension. She has active dorsiflexion plantarflexion of her left ankle.. Results & Data Results & Data Laboratory Results H & H 11/03/20 11/28/20 Range/Units 12:07 06:59 Hgb 12.2 11.2 L (12.0-16.0) g/dL Hct 37.3 34.5 L (37-47) % Coagulation 11/03/20 Range/Units 12:07 INR 1.0 (0.9-1.1) . Diagnostic Findings Postoperative x-rays of the left knee show the prosthesis to be in anatomic alignment without any evidence of fracture, dislocation, or loosening. PG Care Time/CCT Total # of Minutes Spent Total Time Spent with Patient: Total time spent is greater than 50% in coordination of care (as documented) at patient's floor/unit and/or counseling patient: Coding Level of Care Code 18461 Post Operative Follow-Up Diagnoses Status post left knee replacement Z96.652
[2020-11-28] MEDS ORDERED: dexAMETHasone 4 MG TAB PO SCH (08:00)
--- NOTE | 2020-11-28 08:00 | Discharge Summary ---
Date of Service November 28, 2020 Admission HPI (Per Admitting) Norma is a pleasant 70-year-old female who is been ill with chronic increasing left knee pain. X-rays and clinical examination have been diagnostic for advanced osteoarthritis of the left knee. After failing conservative treatment, she has elected proceed with a left total knee arthroplasty. I did a right knee replacement on her in March 2020 and she is done very well with that.. Admission Exam (Per Admitting) On physical examination of the left knee, she has a slight varus deformity. She has tenderness palpation of the distal medial femoral condyle and over the medial joint line. She has no instability.. Principal Diagnosis Same as "Discharge Diagnosis" noted below under Discharge Instructions. Discharge Exam On physical examination of the left knee, the dressing is clean and dry. Her leg is out in full extension. She has active dorsiflexion plantarflexion of her left ankle.. Discharge Data Consultations 11/27/20 17:00 Consult Case Management - Discharge Planning Routine Procedures Performed Operation Date: 11/27/20 14:20 Actual Procedures p Left Total Knee Arthroplasty(Left) - Hernan Mcgowan DO Ordered Studies 11/27/20 05:00 US - OR guided needle placemen Routine Hospital Course (1) Status post left knee replacement: On November 27, [address] [facility] and underwent a left total knee arthroplasty without complication. She had a general anesthetic. Postoperatively she was started on aspirin for DVT prophylaxis and transferred to the general orthopedic floors. Her hospital course was uneventful. On postop day #1 her H&H was stable and her pain is well controlled. She was able to participate well with physical therapy doing ambulation and range of motion exercises. She was then discharged home. She will follow-up with orthopedics in 2 weeks. PG Care Time/CCT Total # of Minutes Spent Total Time Spent with Patient: Total time spent is greater than 50% in coordination of care (as documented) at patient's floor/unit and/or counseling patient: Discharge Plan Discharge Items Patient Disposition: Home - Home Health Services Reason For Visit: Degenerative Left Knee Joint Disease Discharge Diagnosis: Left knee replacement Activity: As commented below Non-emergency contact: Surgeon Call non-emergency contact if: your wound has increased redness and your wound has increased drainage Follow-up/Referrals: PCP,NO [Primary Care Provider] - Diet: Regular Addtl Attending Provider Instructions: Activity and Therapy Recommendations: * If you are using [facility] then therapy will be provided at your home until they feel you have accomplished all of your goals. * If you are using [facility] then Physical Therapy will be provided until they feel you are ready to start Outpatient Physical Therapy. * If you are not using home therapy then Outpatient Physical Therapy should start about 3-5 days from your day of surgery. Therapy will last about 6-10 weeks * It is important not to put a pillow under your knee when you are relaxing or sleeping. It is just as important to make sure you are getting your knee perfectly straight as it is to regain your knee bend. * You were shown a series of exercises in the hospital. Do these exercises three times each day including the exercises you were shown in physical therapy. * Get up and walk several times each day. For the first four weeks, try not to stand or walk for more than one hour at a time. If you do stand or walk for more than one hour, you will not hurt anything, but your leg will likely swell. * As you feel comfortable, you may change from the walker or crutches to a cane and then to independent walking. Medications: * Narcotic You will likely be sent home from the hospital with a prescription for the narcotic pain medication that worked best throughout your stay. * Aspirin Most patients will be required to take Aspirin 81mg twice a day for 6 weeks after surgery. This is obtained [id number] and a prescription is not necessary. * Other medications may be prescribed for specific circumstances. If you have any questions, please call the office at . * Resume previous home medications unless otherwise instructed TEDs/Elastic Stockings: The white elastic stockings help limit swelling and prevent blood clots from forming in your legs.~ The more you wear them, the more they work. Wear them for six weeks. Dressing Care: Leave the Silverlon dressing in place for 7 days. After 7 days you may remove the dressing. If the incision is not draining then you may leave the tracey open to air. If there is a little bit of drainage or if the tracey are getting stuck on your clothing then cover the incision with a dry dressing. The tracey will be removed at your 2 week follow-up appointment. Showering: You may shower with the Silverlon dressing in place. Do not let the shower spray hit the dressing directly. Pat the Silverlon dressing dry. If the dressing becomes wet underneath, then simply remove the dressing. Keep the incision dry until you are 7 days out from the day of surgery. After 7 days you may remove the Silverlon dressing and shower with the tracey exposed. Let soapy water run over the tracey and pat them dry. Do not scrub or soak the incision. Things To Watch For: * Drainage from the incision site that occurs more than one week after your surgery. * Increased redness at the incision site. * Fever above 102 degrees Fahrenheit. * Unusual chest pain or shortness of breath. * Call [facility] at with any of the above problems Follow-Up Visit: Follow-up with Dr. Mcgowan's PA (Hernan Vilchis) 2-3 weeks after your day of surgery. He will remove your tracey and answer any questions. If you have any additional questions or concerns, Dr Mcgowan is usually in the office at the same time and will be available An appointment was probably scheduled when you signed-up for surgery in the office. If you have any questions call Office Instructions: More detailed instructions as well as Frequently Asked Questions were provided in a folder by our office when you signed-up for surgery. Please review these instructions when you get home. If you have any further questions or concerns, please feel free to call the office at [phone] Pending Studies at Discharge: No Stand-Alone Forms: My [facility], Smoking Cessation Medications and DC Order Prescriptions: New oxycodone 5 mg Tablet 5 mg PO Q4H PRN (Reason: pain) Qty: 60 RF: 0 aspirin 81 mg Tablet,Delayed Release (Dr/Ec) 81 mg PO BID 42 Days Qty: 0 RF: 0 Continued (DME) hunter Hernandez See Rx Instructions .ROUTE .MEDSUPPLY Qty: 1 RF: 0 (DME) hunter Hernandez See Rx Instructions .ROUTE .MEDSUPPLY Qty: 1 RF: 0 amoxicillin 500 mg tablet 2,000 mg PO ONCE PRN (Reason: prophylaxis) Qty: 4 RF: 2 multivitamin Tablet 1 tab PO QAM RF: 0 calcium polycarbophil [FiberCon] 625 mg Tablet 1,250 mg PO HS RF: 0 docusate sodium [Colace] 100 mg Capsule 100 mg PO HS RF: 0 cholecalciferol (vitamin D3) [Vitamin D3] 1,000 unit Capsule 1,000 unit PO QAM RF: 0 Laurie-D 24 Hour 180-240 mg Tablet Extended Release 24 Hr 1 tab PO QAM PRN (Reason: Allergy Symptoms) RF: 0 Caltrate 600 plus D 600 mg (1,500 mg)-800 unit Tablet,Chewable 1 tab PO QAM RF: 0 ibuprofen 200 mg capsule 600 mg PO BID PRN (Reason: Pain) RF: 0 sennosides [Vegetable Laxative] 8.6 mg Tablet 8.6 mg PO HS PRN (Reason: Constipation) RF: 0 rosuvastatin [Crestor] 10 mg Tablet 10 mg PO QAM RF: 0 Discharge Orders: Discharge Order (Routine); Ordered 11/28/20 Ordered By: Hernan Mcgowan Admission Data Admit Date/Time: 11/27/20 16:07 Attending Provider: Hernan Mcgowan Admit Provider: Hernan Mcogwan Primary Care Provider: PCP,NO
[2020-11-28] MEDS: DOCUSATE SODIUM 100 MG CAP PO SCH (08:14)
[2020-11-28] MEDS: ASPIRIN 81 MG ECTAB PO SCH (08:14)
[2020-11-28] MEDS ORDERED: ROSUVASTATIN CALCIUM 10 MG TAB PO SCH (09:00)
[2020-11-28] MEDS ORDERED: MULTIVITAMIN TAB PO SCH (09:00)
--- NOTE | 2020-11-28 12:15 | Anesthesiology Progress Note ---
Date of Service November 28, 2020 Anesthesia Post Procedure Vital Signs Vital Signs: Temp Pulse Pulse Resp BP BP Pulse Ox 11/28/20 09:59 36.4 C L 69 16 104/65 90 11/28/20 07:04 36.4 C L 69 16 104/65 90 11/28/20 03:50 36.5 C 68 16 108/48 L 96 11/27/20 23:48 36.4 C L 70 16 132/76 99 11/27/20 18:59 36.4 C L 69 16 158/78 H 98 11/27/20 17:59 36.4 C L 82 16 136/81 98 11/27/20 17:30 36.4 C L 71 16 133/77 95 11/27/20 17:07 36.5 C 70 17 145/74 H 95 11/27/20 16:45 36.9 C 81 14 141/80 H 94 11/27/20 16:35 81 14 141/65 H 94 11/27/20 16:25 80 14 145/71 H 94 11/27/20 16:15 79 12 142/72 H 94 11/27/20 16:08 36.7 C 77 19 140/68 93 11/27/20 14:15 81 18 166/100 H 97 11/27/20 13:42 36.8 C 82 20 159/101 H 96 Notes Mental Status: alert / awake / arousable Patient Amnestic to Procedure: Yes Nausea / Vomiting: adequately controlled Pain: adequately controlled Airway Patency, RR, SpO2: stable & adequate BP & HR: stable & adequate Hydration State: stable & adequate Anesthetic Complications: no major complications apparent and Pt Satisfied with anesthetic care
== END 2020-11-28 13:45 | disposition home health service (06) ==
LOC: 3E 13:01 → ASU 13:01